=== PATIENT | female | born 1970 | race Caucasian/White ===

== ENCOUNTER 2024-09-05 10:01 | Outpatient (CLI) | payer OTHER, SELFPAY ==
--- NOTE | ~2024-09-05 | XR_ITS ---
Left Hand Technique: PA, oblique, and lateral views were obtained. Clinical History: Pain Findings: No acute fracture or dislocation is seen. Osseous alignment is anatomic. Joint spaces are p reserved. Soft tissues are unremarkable. Impression: Unremarkable left hand. Reviewed, dictated and finalized at location M. Impression: Unremarkable left hand.
--- NOTE | ~2024-09-05 | XR_ITS ---
Left foot Technique: AP, oblique, and lateral views were obtained. Clinical History: Pain Findings: No acute fracture or dislocation is seen. There is moderate degenerative change of the firs t MTP joint. Soft tissues are unremarkable. 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 Reviewed, dictated and finalized at location . 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
--- NOTE | ~2024-09-05 | XR_ITS ---
Right wrist Technique: PA, oblique, lateral, and ulnar deviation views were obtained. Clinical History: Pain Findings: No acute fracture or dislocation is seen. Osseous alignment is anatomic. Joint spaces are p reserved. Soft tissues are unremarkable. Impression: Unremarkable right wrist radiographs. Reviewed, dictated and finalized at location . Impression: Unremarkable right wrist radiographs.
--- NOTE | ~2024-09-05 | XR_ITS ---
Right Hand Technique: PA, oblique, and lateral views were obtained. Clinical History: Pain Findings: No acute fracture or dislocation is seen. Osseous alignment is anatomic. Joint spaces are p reserved. Soft tissues are unremarkable. Impression: Unremarkable right hand. Reviewed, dictated and finalized at location M. Impression: Unremarkable right hand.
--- NOTE | ~2024-09-05 | XR_ITS ---
Left wrist Technique: PA, oblique, lateral, and ulnar deviation views were obtained. Clinical History: Pain Findings: No acute fracture or dislocation is seen. Osseous alignment is anatomic. Joint spaces are p reserved. Soft tissues are unremarkable. Impression: Unremarkable left wrist radiographs. Reviewed, dictated and finalized at location . Impression: Unremarkable left wrist radiographs.
--- OUTSIDE RECORDS SUMMARY | 2024-09-05 11:18 | XMS_ITS | Data Portability ---
Author Organization 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 Patient will come back in a year unless there are new symptoms. Not available 09/26/2021 09:38:05 04/28/2024 04/28/2024 Annual gynecological exam performed. Patient will come back in a year unless there are new symptoms. [email or web address] Not available 04/28/2024 09:19:43 Plan of Treatment Reminders Order Date Submit Date Provider Last Modified By Organization Details Last Modified Time Details Appointments None recorded. Lab hormone panel, serum or plasma 2022 023 [facility] (Lab), [address], [place], [address], 3 02:44:31 hsv (1+2) igm, serum 2022 023 [facility] (Lab), [address], [place], [address], 3 17:38:13 hsv-1 igg Ab, serum 2022 023 [facility] (Lab), [address], [place], [address], 3 17:38:12 hsv-2 igg Ab, serum 2022 023 [facility] (Lab), [address] [address], [place], [address], 3 17:38:12 hbcab (hepatitis B core Ab) igm, serum 2022 023 [facility] (Lab), [address], [place], [address], 3 17:38:13 HBsAg (hepatitis B surface Ag), serum 2022 023 [facility] (Lab), [address], [place], [address], 3 17:38:11 hepatitis C virus Ab, serum 2022 023 [facility] (Lab), [address], [place], [address], 3 17:38:12 unlisted lab - HIV 1/2 antigen/an tibody, reflex confirmati on 2022 023 [facility] (Lab), [address], [place], [address], 3 17:38:11 RPR (rapid plasma reagin), serum 2022 023 [facility] (Lab), [address] [place], [address], 3 17:38:13 RPR (rapid plasma reagin), serum 2021 022 [facility] (Lab), [address], [place], [address], 2 13:50:01 Referral None recorded. Procedures None recorded. Surgeries None recorded. Imaging MAMMO, screening, digital, bilateral 2023 024 [facility] [address], [place], [address], 4 04:07:31 Medication Orders fluconazol e 150 mg tablet 2023 024 [facility] #[id number], [address] [facility], [place], [place], [id number], 4 10:09:01 estradiol 1 mg tablet 2023 024 [facility] #41176, [address] [place] [address], [id number], 4 10:10:43 Prometrium 100 mg capsule 2023 024 [facility] #76769, [address] [place] [address], [id number], 4 10:10:42 estradiol 1 mg tablet 2023 024 [facility] #15824, [address] [facility], [place], [place], [id number], 4 16:17:13 progestero ne micronized 100 mg capsule 2023 024 [facility] #48135, [address] [place] [address], [id number], 4 09:28:59 azithromyc in 500 mg tablet 2022 023 [email or web address] [facility] #95936, [address] [place] [address], [id number], 3 09:47:13 Patient TargetsNo targets recorded. Patient InstructionsNo instructions recorded. Reason for Referral None Reported. Results Created Date Observation Date Name Description Value Unit Range Abnormal Flag Note LastModifiedBy Organization Detail LastModifiedTime 09/27/19 22 09/26/2021 RPR SCREE N/REF TAL TITER /FTA RPR screen Nonrea ctive nonrea ctive Not Available [facility] (Lab) [address], [place], [address], 09/27/2021 13:50:01 09/27/19 22 09/26/2021 IMAGE GUIDE D PAP AND HPV REGAR DLESS image guided Pap, HPV regardless of Pap result SEE RESULT S BELOW CASE REPOR T: Cytol ogy Gynec ologi gary Repor t Case: [id number] Autho ritimn g [place]vi [place]: Misha Yi MD Colle cted: 09/26 0949 Order ing Locat ion: [place] Patho logy Recei aldo: 09/27 0808 First Scree n: Karen Moscoso een: Ngoc Diaz ed, CT Speci men: Scree reagan Pap - Image d, Cervi x STATE MENT OF ADEQU ACY: Satis facto ry for evalu ation Trans forma tion zone compo nent absen t The absen ce of an endoc ervic al compo nent was confi rmed by an addit ionquintin collins. FINAL DIAGN OSIS: Negat ludin for Intra epith elial Christian barrow or Jared may (NIL) . Raysa ewing d by Ngoc Diaz ed, CT on 2021 at 9:10 PM ----- ----- ----- ----- ----- ----- ----- ----- ----- ----- ----- ----- ----- ----- ----- ----- ----- ---- HPV RESUL TS: HPV mRNA E6/E7 : No HPV mRNA Detec bassem NOTE: This high risk HPV mRNA assay detec ts fourt een high- risk HPV types (16, 18, 31, 33, 35, 39, 45, 51, 52, 56, 58, 59, 66, 68) witho ut diffe renti ation . COMME NT: Note: This speci men was revie wed by a Cytot echno logis t and/o r Patho logis t (as indic ated in this repor t) after evalu ation using the Thinp rep Imagi ng Syste m. CLINI GARY INFOR MATIO N: Menst rual Statu s: LMP (if appli cable ): Clini gary Histo ry/Pr eviou s Pap: Type of Neopl aidee (if appli cable ): Signi fican t Clini gary Findi ngs: Other Histo ry: Hormo shelley (if appli cable ): PAP EDUCA IRASEMA L NOTE: The Pap Test is a scree reagan test with an inher ent false negat ludin rate. Liqui d-bas ed sampl ing may decre ase, but will not elimi joslyn, false negat ludin resul ts. A negat ludin resul t does not precl ude the prese nce and/o r devel opmen t of disea se, since the prese nce of abnor mal cells in the sampl e depen ds on the locat ion of the lesio n and sampl ing techn ique. Yuri nued regul ar scree reagan is the best metho d of cance r preve ntion . If repor bassem cytol ogic findi ng do not corre late with physi gary and/o r histo rical findi ngs, furth er inves tigat ion is recom kinjal d, as clini alisia santana nted. Not Available [facility] (Lab) [address], [place], [address], 10/04/2021 22:13:39 09/27/19 22 09/26/2021 CT/GC (MARTHA) , THINP REP VIAL chlamydia trachomatis, PCR Negati ve negati ve Not Available [facility] (Lab) [address], [place], [address], 10/04/2021 22:13:40 09/27/19 22 09/26/2021 CT/GC (MARTHA) , THINP REP VIAL neisseria gonorrhoeae, PCR Negati ve negati ve Not Available [facility] (Lab) [address], [place], [address], 10/04/2021 22:13:40 09/27/19 22 09/26/2021 TRICH OMONA S VAGIN TAI (RRNA ) trichomonas vaginalis ribosomal RNA (rrna) Negati ve negati ve Not Available [facility] (Lab) [address], [place], [address], 10/04/2021 22:13:40 06/17/19 23 06/17/2022 VAGIN ITIS/ VAGIN OSIS, DNA PROBE kati sp. detection, direct probe Negati ve negati ve Not Available [facility] (Lab) [address], [place], [address], 06/18/2022 16:20:52 06/17/19 23 06/17/2022 VAGIN ITIS/ VAGIN OSIS, DNA PROBE gardnerella vag. detection, direct probe Negati ve negati ve Not Available [facility] (Lab) [address], [place], [address], 06/18/2022 16:20:52 06/17/19 23 06/17/2022 VAGIN ITIS/ VAGIN OSIS, DNA PROBE trichomonas vag. detection, direct probe Negati ve negati ve Not Available [facility] (Lab) [address], [place], [address], 06/18/2022 16:20:52 06/17/19 23 06/17/2022 CT/GC (MARTHA) , SWAB chlamydia trachomatis, PCR Negati ve negati ve Not Available [facility] (Lab) [address], [place], [address], 06/18/2022 16:20:53 06/17/19 23 06/17/2022 CT/GC (MARTHA) , SWAB neisseria gonorrhoeae, PCR Negati ve negati ve Not Available [facility] (Lab) [address], [place], [address], 06/18/2022 16:20:53 06/17/19 23 06/17/2022 HIV 1/2 ANTIG EN/AN TIBOD Y, REFLE X CONFI RMATI ON HIV antigen/anti body Nonrea ctive nonrea ctive HIV-1 antig en and HIV-1 /HIV- 2 antib odies were not detec bassem. No labor atory evide nce of HIV infec tion. Not Available [facility] (Lab) [address], [place], [address], 06/21/2022 17:38:11 06/17/19 23 06/17/2022 HEPAT ITIS B SURFA CE ANTIG EN hepatitis B surface antigen Non-re active non-re active This assay was perfo rmed using [employer] [facility] [facility] Corpo ratio n reage nts and test kits. Value s obtai ekaterina with other assay metho ds or kits canno t be used inter alfred eably . Not Available [facility] (Lab) [address], [place], [address], 06/21/2022 17:38:11 06/17/19 23 06/17/2022 HEPAT ITIS C ANTIB YAYO SCREE N, REFLE X TO CONFI RMATI ON hepatitis C antibody Non-re active non-re active Antib odies to HCV Not Detec bassem, does not exclu de the possi bilit y of expos ure to HCV. Not Available [facility] (Lab) [address], [place], [address], 06/21/2022 17:38:12 06/17/19 23 06/17/2022 HERPE S SMPLE X VIRUS TYPE 1 SPECI FIC AB, IGG herpes simplex virus 1 IgG Negati ve negati ve Not Available [facility] (Lab) [address], [place], [address], 06/21/2022 17:38:12 06/17/19 23 06/17/2022 HERPE S SMPLE X VIRUS TYPE 1 SPECI FIC AB, IGG herpes simplex virus 1 IgG, quant <0.2 ai 0.0-0. 8 Not Available [facility] (Lab) [address], [place], [address], 06/21/2022 17:38:12 06/17/19 23 06/17/2022 HERPE S SIMPL EX VIRUS TYPE 2 SPECI FIC AB, IGG herpes simplex virus 2 IgG Negati ve negati ve Not Available [facility] (Lab) [address], [place], [address], 06/21/2022 17:38:12 06/17/19 23 06/17/2022 HERPE S SIMPL EX VIRUS TYPE 2 SPECI FIC AB, IGG herpes simples virus 2 IgG, quant <0.2 ai 0.0-0. 8 Not Available [facility] (Lab) [address], [place], [address], 06/21/2022 17:38:12 06/17/19 23 06/17/2022 RPR SCREE N/REF TAL TITER /FTA RPR screen Nonrea ctive nonrea ctive Not Available [facility] (Lab) [address], [place], [address], 06/21/2022 17:38:13 06/17/19 23 06/17/2022 HEPAT ITIS B CORE, IGM hepatitis B core IgM antibody Negati ve negati ve Not Available [facility] (Lab) [address], [place], [address], 06/21/2022 17:38:13 06/17/19 23 06/17/2022 HERPE S SIMPL EX VIRUS , 1 AND 2 IGM, IFA hsv 1 IgM screen NEGATI VE Not Available [facility] (Lab) [address], [place], [address], 06/21/2022 17:38:13 06/17/19 23 06/17/2022 HERPE S SIMPL EX VIRUS , 1 AND 2 IGM, IFA hsv 2 IgM screen NEGATI VE REFER ENCE RANGE : NEGAT LUDIN HSV IgM is detec table in serum from >90% of patie nts with prima ry HSV infec tion. Howev er, HSV IgM canno t be relia shilpa used to diagn ose acute /rece nt infec tion as it is also found in 30% of patie nts with react ivate d HSV. This test may not disti nguis h betwe en HSV-1 IgM and HSV-2 IgM due to cross -reac tivit y. To diagn ose acute genit al or mucos al HSV infec tion, direc t detec tion from a lesio n by cultu re or molec ular metho ds is prefe rred. HSV IgM posit ivity shoul d be confi rmed by HSV-1 /2 type- speci fic IgG testi ng. This test was devel oped and its glenny tical perfo rmanc e yuliana cteri stics have been deter mined by [facility]. It has not been clear ed or appro aldo by FDA. This assay has been valid ated pursu ant to the CLIA regul ation s and is used for clini gary purpo ses. Perfo rming Organ izati on Infor matio n: Site ID: [id number] Name: [facility]/William camilla [facility] [place] , Addre ss: [id number] [facility] [place] [address] Direc tor: Thais benjamin MD,Ph D,INDIRA Not Available [facility] (Lab) [address], [place], [address], 06/21/2022 17:38:13 10/01/19 23 09/30/2022 FSH, LH, ESTRA DIOL estradiol 60.5 pg/mL This assay was perfo rmed using [employer] [facility] ratio n reage nts and test kits. Value s obtai ekaterina with other assay metho ds or kits canno t be used inter alfred eably . Femal e Estra diol Range s: Folli cular phase 12.4- 233 pg/mL Ovula tion phase 41.0- 398 pg/mL Lutea l phase 22.3- 341 pg/mL Postm enopa usal< 5-138 pg/mL Healt hy Pregn ant Women 1st Trime ster1 54-32 43 pg/mL 2nd Trime ster1 561-2 1280 pg/mL 3rd Trime ster8 525-> 66415 pg/mL Not Available [facility] (Lab) [address], [place], [address], 10/01/2022 02:44:31 10/01/19 23 09/30/2022 FSH, LH, ESTRA DIOL FSH 40.9 mIU/m L This assay was perfo rmed using [employer] ratio n reage nts and test kits. Value s obtai ekaterina with other assay metho ds or kits canno t be used inter alfred belia . Femal es Folli cular : 3.5-1 2.5 mIU/m L Ovula tion: 4.7-2 1.5 mIU/m L Lutea l: 1.7-7 .7 mIU/m L Postm enopa use: 25.8- 134.8 mIU/m L Not Available [facility] (Lab) [address], [place], [address], 10/01/2022 02:44:31 10/01/1909/30/2022 FSH, LH, ESTRA DIOL LH 48.0 mIU/m L This assay was perfo rmed using [employer] ratio n reage nts and test kits. Value s obtai ekaterina with other assay metho ds or kits canno t be used inter alfred belia . Femal es Mid-F ollic ular: 2.4-1 2.6 mIU/m L Mid-C ycle: 14.0- 95.6 mIU/m L Mid-L uteal : 1.0-1 1.4 mIU/m L Postm enopa use: 7.7-5 8.5 mIU/m L Not Available [facility] (Lab) [address], [place], [address], 10/01/2022 02:44:31 10/01/19 23 09/30/2022 IMAGE GUIDE D PAP AND HPV REGAR DLESS image guided Pap, HPV regardless of Pap result SEE RESULT S BELOW CASE REPOR T: Cytol ogy Gynec ologi gary Repor t Case: [id number] Autho kev sheldon Provi [place]: Alicja Webb, CANDACE Colle cted: 09/30 1445 Order ing Locat ion: [place] Patho logy Recei aldo: 10/01 0140 First Scree n: Strut z, Willi am, CT Rescr een: Haven Bone ret, CT Speci men: Scree reagan Pap - Image d, Cervi x STATE MENT OF ADEQU ACY: Satis facto ry for evalu ation Trans forma tion zone compo nent prese nt FINAL DIAGN OSIS: Negat ludin for Intra epith elial Lesio n or Jared may (NIL) . Elect litzy llanos gildardo d by Haven Bone ret, CT on 2022 at 5:55 PM ----- ----- ----- ----- ----- ----- ----- ----- ----- ----- ----- ----- ----- ----- ----- ----- ----- ---- HPV RESUL TS: HPV mRNA E6/E7 : No HPV mRNA Detec bassem NOTE: This high risk HPV mRNA assay detec ts fourt een high- risk HPV types (16, 18, 31, 33, 35, 39, 45, 51, 52, 56, 58, 59, 66, 68) witho ut diffe renti ation . COMME NT: This speci men was revie wed by a Cytot echno logis t and/o r Patho logis t (as indic ated in this repor t) after evalu ation using the Thinp rep Imagi ng Syste m. CLINI GARY INFOR MATIO N: Menst rual Statu s: LMP (if appli cable ): Clini gary Histo ry/Pr eviou s Pap: Type of Neopl aidee (if appli cable ): Signi fican t Clini gary Findi ngs: Other Histo ry: Hormo shelley (if appli cable ): PAP EDUCA IRASEMA L NOTE: The Pap Test is a scree reagan test with an inher ent false negat ludin rate. Liqui d-bas ed sampl ing may decre ase, but will not elimi joslyn, false negat ludin resul ts. A negat ludin resul t does not precl ude the prese nce and/o r devel opmen t of disea se, since the prese nce of abnor mal cells in the sampl e depen ds on the locat ion of the lesio n and sampl ing techn ique. Yuri nued regul ar scree reagan is the best metho d of cance r preve ntion . If repor bassem cytol ogic findi ng do not corre late with physi gary and/o r histo rical findi ngs, furth er inves tigat ion is recom kinjal d, as clini alisia santana nted. Not Available [facility] (Lab) [address], [place], [address], 10/03/2022 18:57:03 Result Notes None recorded. Problems Name Problem SNOMED Code Status Onset Date Resolution Date Notes Provider Name and Address Organization Details Recorded Time Speciali zed medical examinat ion Completed 201409/13/2020 Routine gynecolo gical examinat ion;Prac ofelia ID: [id number] Juaquin Yi MD [address], [place], [address], [facility] 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 1 10:06:44 Abnormal cervical Papanico laou smear [id number] Active 2014 Kirsten Horvath [facility] 3 12:37:33 History of syphilis [id number] Active Kirstenfrancesca Horvath [facility] 3 12:38:22 Human papillom a virus infectio n 129331866 Active 2014 Kirsten Horvath [facility] 3 12:39:13 Problem Notes None recorded. Procedures Surgical History Date Name Laterality Status Provider Name and Address Organization Details Recorded Time 10/01/19 23 Date of Last Pap Smear completed [facility] 09/30/2022 09:47:38 05/17/20 20 Bartholin Cyst Drainage completed Katty Ortiz NEGRO- [address], [place], [address], [facility] 05/17/2020 10:30:30 06/08/19 15 procedure on Bartholin's gland completed [facility] 06/17/2022 13:00:08 06/08/19 13 Tubal Ligation completed [facility] 06/17/2022 12:58:55 04/28/20 08 section completed [facility] 06/17/2022 12:59:18 06/08/19 01 Thyroid Surgery completed [facility] 06/17/2022 12:57:29 06/08/18 96 extraction of wisdom tooth completed [facility] 06/17/2022 12:59:36 procedure on back completed [facility] 06/17/2022 12:58:33 Imaging Results None recorded. Procedure Notes None recorded. Medical Equipment None Reported. Allergies No known drug allergies Medications Name Sig Start Date Stop Date Status Note LastModified by Organization Details LastModified Time doxycycli ne hyclate 100 mg capsule TAKE 1 CAPSULE BY MOUTH EVERY DAY AT BEDTIME 06/17 completed Not Available Not Available Not Available nicotine 14 mg/24 hr daily transderm al patch APPLY 1 PATCH TOPICALL Y TO THE SKIN EVERY DAY DIRECTED 06/17 completed Not Available Not Available Not Available Zyrtec-D 5 mg-120 mg tablet,ex tended release TAKE 1 TABLET BY MOUTH EVERY 12 HOURS NEEDED active Not Available Not Available No t Available ammonium lactate 12 % lotion APPLY TOPICALL Y TO THE AFFECTED AREA ON CALLUSES THE PLANTAR FOOT TWICE DAILY DIRECTED 06/17 completed Not Available Not Available Not Available trazodone 50 mg tablet TAKE 1 TABLET BY MOUTH EVERY DAY AT BEDTIME 06/17 completed Not Available Not Available Not Available cetirizin e 10 mg tablet TAKE 1 TABLET BY MOUTH EVERY DAY DIRECTED active Not Available Not Available No t Available fluconazo le 150 mg tablet TAKE 1 TABLET BY MOUTH NOW. REPEAT IN 72 HOURS NEEDED active Not Available Not Available No t Available valacyclo vir 1 gram tablet TAKE 1 TABLET BY MOUTH EVERY 12 HOURS 03/19 completed Not Available Not Available Not Available Paxil 10 mg/5 mL oral suspensio n take 10 millilit er by oral route every day 10/27 completed Prescrib ed Elsewher e: Yes Loca tion: [facility] M odify By: gold bolden DateTime : 01/12/20 15 01:00:00 PM Not Available Not Available Not Available prednison e 20 mg tablet TAKE 2 TABLETS BY MOUTH EVERY DAY WITH FOOD FOR 5 DAYS 03/19 completed Not Available Not Available Not Available clonazepa m 0.5 mg tablet TAKE 1 TABLET BY MOUTH EVERY 24 HOURS NEEDED 03/19 completed Not Available Not Available Not Available metronida zole 500 mg tablet TAKE 1 TABLET BY MOUTH TWICE DAILY WITH MEALS FOR 7 DAYS 03/19 completed Not Available Not Available Not Available alprazola m 0.25 mg tablet TAKE 1 TABLET BY MOUTH EVERY 24 HOURS NEEDED 04/28 completed Not Available Not Available Not Available Metrogel Vaginal 0.75 % (37.5 mg/5 gram) insert 1 applicat orful by vaginal route for 5 nights at bedtime 09/13 completed Prescrib ed Elsewher e: No Locat ion: [facility] odify By: karl ramos DateTime : 10/30/19 01:25:31 PM Not Available Not Available Not Available estradiol 1 mg tablet Take 1 tablet every day by oral route. active Not Available Not Available No t Available trazodone 100 mg tablet TAKE 1 TABLET BY MOUTH EVERY DAY AT BEDTIME 06/17 completed Not Available Not Available Not Available Ear Wax Removal Drops 6.5 % INSTILL 4 DROPS INTO AFFECTED EARS BY OTIC ROUTE TWICE DAILY 06/17 completed Not Available Not Available Not Available Keflex 250 mg capsule take 1 capsule by oral route every 6 hours 01/30 completed Prescrib ed Elsewher e: Yes Loca tion: [facility] odify By: [email or web address] debrak En counter DateTime : 01/12/20 01:00:00 PM Not Available Not Available Not Available cephalexi n 500 mg capsule TAKE 1 CAPSULE BY MOUTH TWICE DAILY FOR 7 DAYS 05/24 completed Not Available Not Available Not Available oseltamiv ir 75 mg capsule TAKE 1 CAPSULE BY MOUTH TWICE A DAY 09/13 completed Not Available Not Available Not Available Cipro 500 mg tablet take 1 tablet by oral route every 12 hours 07/03 completed Prescrib ed Elsewher e: No Locat ion: [facility] odify By: gold bolden DateTime : 03/30/20 08:30:00 AM Not Available Not Available Not Available buspirone 10 mg tablet TAKE 1 TABLET BY MOUTH EVERY 12 HOURS NEEDED active Not Available Not Available No t Available diclofena c sodium 75 mg tablet,de layed release TAKE 1 TABLET BY MOUTH EVERY 12 HOURS NEEDED 03/19 completed Not Available Not Available Not Available penicilli n G sodium 5 million unit solution for injection TAKE 2.5 MILLION UNITS BY INJECTIO N ROUTE 09/13 completed Not Available Not Available Not Available levofloxa akilah 500 mg tablet TAKE 1 TABLET BY MOUTH EVERY 24 HOURS FOR 7 DAYS 09/30 completed Not Available Not Available Not Available zolpidem 10 mg tablet TAKE 1 TABLET BY MOUTH EVERY DAY NEEDED FOR SLEEP 06/17 completed Not Available Not Available Not Available methylpre dnisolone 4 mg tablets in a dose pack FOLLOW PACKAGE DIRECTIO NS active Not Available Not Available No t Available SSD 1 % topical cream APPLY A 1/16 INCH (1.5 MM) THICK LAYER TO ENTIRE BURN AREA BY TOPICALR OUTE 2 TIMES PER DAY 09/13 completed Not Available Not Available Not Available methadone 5 mg tablet take 1 tablet by oral route every 8 hours 07/03 completed Prescrib ed Elsewher e: Yes Loca tion: [facility] M odify By: [email or web address] trick En counter DateTime : 11/13/19 16 02:00:00 PM Not Available Not Available Not Available Klonopin 1 mg tablet take 1 tablet by oral route 3 times every day 07/03 completed Prescrib ed Elsewher e: Yes [facility]oca [facility]ify By: [email or web address] trick En counter DateTime : 11/13/19 16 02:00:00 PM Not Available Not Available Not Available fluticaso ne propionat e 50 mcg/actua tion nasal spray,lizeth pension SHAKE LIQUID AND USE 1 SPRAY IN EACH NOSTRIL EVERY DAY active Not Available Not Available No t Available sertralin e 50 mg tablet TAKE 1 TABLET BY MOUTH EVERY DAY IN THE MORNING 06/17 completed Not Available Not Available Not Available naproxen 500 mg tablet TAKE 1 TABLET BY MOUTH EVERY 12 HOURS DIRECTED active Not Available Not Available No t Available spironola ctone 50 mg tablet TAKE 2 TABLETS BY MOUTH EVERY DAY IN THE MORNING active Not Available Not Available No t Available progester one micronize d 100 mg capsule Take 1 capsule every day by oral route. active Not Available Not Available No t Available amoxicill in 875 mg-potass ium clavulana te 125 mg tablet TAKE 1 TABLET BY MOUTH EVERY 12 HOURS WITH MEALS FOR 10 DAYS 04/28 completed Not Available Not Available Not Available buspirone 15 mg tablet TAKE 1 TABLET BY MOUTH EVERY 12 HOURS DIRECTED 06/17 completed Not Available Not Available Not Available Bicillin L-A 1,200,000 unit/2 mL intramusc ular syringe Inject 2 mL by intramus cular route. 09/13 completed Not Available Not Available Not Available Bactrim DS 800 mg-160 mg tablet take 1 tablet by oral route every 12 hours 03/30 completed Prescrib ed Elsewher e: No Locat ion: [facility] odify By: gold Jo ter DateTime : 03/30/20 17 08:30:00 AM Not Available Not Available Not Available azithromy akilah 500 mg tablet TAKE 2 TABLETS BY MOUTH 09/30 completed Not Available Not Available Not Available escitalop simeon 10 mg tablet TAKE 1 TABLET BY MOUTH ONCE DAILY IN THE EVENING 05/17 completed Not Available Not Available Not Available escitalop simeon 5 mg tablet TAKE 1 TABLET BY MOUTH IN THE MORNING 05/17 completed Not Available Not Available Not Available bupropion HCl (bulk) 100 % powder 10/27 completed Prescrib ed Elsewher e: Yes Loca [facility]ion: [facility] odify By: gold Jo ter DateTime : 01/12/20 15 01:00:00 PM Not Available Not Available Not Available duloxetin e 60 mg capsule,d elayed release TAKE 2 CAPSULES BY MOUTH ONCE DAILY IN THE MORNING 05/17 completed Not Available Not Available Not Available Cymbalta 20 mg capsule,d elayed release take 3 Capsule by oral route every day 07/03 completed Prescrib ed Elsewher e: Yes Loca tion: [facility] odify By: gold Jo ter DateTime : 10/28/19 17 11:00:00 AM Not Available Not Available Not Available pregabali n 50 mg capsule TAKE 1 CAPSULE BY MOUTH TWICE DAILY DIRECTED active Not Available Not Available No t Available Echinacea Herb 06/17 completed Not Available Not Available Not Available oxycodone 10 mg tablet take 1 tablet by oral route every 4 - 6 hours 07/03 completed Prescrib ed Elsewher e: Yes Loca tion: [facility] odify By: [email or web address] trick En counter DateTime : 11/13/19 16 02:00:00 PM Not Available Not Available Not Available Alive Once Daily Women 50 Plus active Not Available Not Available Not Available Vitals Date Recorded Body height Body mass index (BMI) Body weight Systolic blood pressure Diastolic blood pressure Provider Name and Address Organization Details Last Updated DateTime 09/26/2021 157.48 cm 22.7 kg/m2 99646.45 g 119 mm[Hg] 71 mm[Hg] Ирина Wahl [facility] 2 09:38:24 Date Recorded Body height Body mass index (BMI) Body weight Systolic blood pressure Diastolic blood pressure Provider Name and Address Organization Details Last Updated DateTime 06/17/2022 157.48 cm 23.2 kg/m2 89967.23 g 109 mm[Hg] 66 mm[Hg] Kirsten Horvath [facility] 3 12:26:51 Date Recorded Body height Body mass index (BMI) Body weight Systolic blood pressure Diastolic blood pressure Provider Name and Address Organization Details Last Updated DateTime 09/30/2022 157.48 cm 23.2 kg/m2 04325.23 g 100 mm[Hg] 70 mm[Hg] Kirsten Horvath [facility] 3 09:46:46 Date Recorded Body weight Systolic blood pressure Diastolic blood pressure Provider Name and Address Organization Details Last Updated DateTime 03/19/2024 75946.63 g 120 mm[Hg] 66 mm[Hg] Jesica Silva [facility] 03/19/2024 10:55:27 Date Recorded Body height Body mass index (BMI) Body weight Systolic blood pressure Diastolic blood pressure Provider Name and Address Organization Details Last Updated DateTime 04/28/2024 157.48 cm 24 kg/m2 92223.6 g 116 mm[Hg] 74 mm[Hg] Emmy Jerry [facility] 4 09:26:02 Social History Question Answer Notes LastModified by Organizat ion Details LastModified Time Tobacco Smoking Status Current Every Day Smoker Kirsten martin [facility] 09/30/2022 09:47:05 What Is Your Level Of Alcohol Consumption? None Information not available 06/25/2020 Are You Blind Or Do You Have Difficulty Seeing? No Information not available 09/26/2021 What Is Your Level Of Caffeine Consumption? Occasional Information not available 06/25/2020 How Much Tobacco Do You Chew? None [email or web address] Information not available 03/19/2024 In The 14 Days Before Symptom Onset, Have You Had Close Contact With A Laboratory-confir med COVID-19 While That Case Was Ill? No Information not available 09/26/2021 In The 14 Days Before Symptom Onset, Have You Had Close Contact With A Person Who Is Under Investigation For COVID-19 While That Person Was Ill? No Information not available 09/26/2021 Have You Been To An Area Known To Be High Risk For COVID-19? No Information not available 09/26/2021 Are You Deaf Or Do You Have Serious Difficulty Hearing? No Information not available 09/26/2021 What Type Of Diet Are You Following? REGULAR Information not available 09/26/2021 What Is The Highest Grade Or Level Of School You Have Completed Or The Highest Degree You Have Received? 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 1 [email or web address] Information not available 09/30/2022 On Those Days That You Engage In Moderate To Strenuous Exercise, How Many Minutes, On Average, Do You Exercise? 60 [email or web address] Information not available 09/30/2022 Are There Any Guns Present In Your Home? No Information not available 09/26/2021 What Is Your Current Pack Years? 10packyears [email or web address] Information not available 09/30/2022 Do You Use Protection During Sex? No Information not available 09/26/2021 Do You Use Your Seat Belt Or Car Seat Routinely? Yes Information not available 09/26/2021 Do You Have Smoke And Carbon Monoxide Detectors In Your Home? Yes Information not available 09/26/2021 At What Age Did You Start Smoking Tobacco? 18 Information not available 06/25/2020 How Much Tobacco Do You Smoke? 2 PPW Information not available 06/25/2020 Do You Feel Stressed (tense, Restless, Nervous, Or Anxious, Or Unable To Sleep At Night)? [id number] [email or web address] Information not available 09/30/2022 Do You Use Any Illicit Or Recreational Drugs? No Information not available 06/25/2020 Do You Use Sunscreen Routinely? No Information not available 09/26/2021 Has Tobacco Cessation Counseling Been Provided? No [email or web address] Information not available 09/30/2022 How Many Years Have You Smoked Tobacco? 15 Information not available 06/25/2020 Have You Used IV Drugs? No Information not available 09/26/2021 Do You Or Have You Ever Used Any Other Forms Of Tobacco Or Nicotine? No [email or web address] Information not available 09/30/2022 Sex: Unknown Functional Status Question Answer Note LastModified by Organizat ion Details LastModified Time Do you have difficulty walking or climbing stairs? No [email or web address] Information not available 09/30/2022 Are you able to walk? [email or web address] Information not available 09/26/2021 Are you able to care for yourself? Yes Information not available 09/30/2022 Do you have difficulty dressing or bathing? No [email or web address] Information not available 09/30/2022 What is your exercise level? Moderate Information not available 06/25/2020 Mental Status None recorded. Family History Relationship Description Onset Age of this Age Resolved Age Notes LastModified by Organization Details LastModified Time Father Hypertensive disorder [email or web address] Not available 2019 09:44:28 Mother Anemia Not available 06/17/2022 12:51:26 Sister Psychotic disorder [email or web address] Not available 2023 09:16:34 Medical History Condition Response Other Y Blood Transfusion N Dermatologic Disorders Y Gestational Diabetes N Anxiety Disorder Y Autoimmune disease N Arthritis N Polyps N Infertility N Acid Reflux (GERD) N Cancer N Varicosities N Stroke N Neurologic/Epilepsy Y Fibromyalgia N Headaches N Kidney Disease N Heart Problems N Kidney or Bladder Problems N Eating Disorder N Art (IVF or FET) N Hepatitis/Liver Disease N No Past Medical History N Urinary Tract Infection N Asthma N Trauma/Violence N Thrombophilias N Allergies (Food, seasonal, environmental ) Y Breast Cancer N Drug/Latex Allergies/Reactions N Lung Disease N Defects or Inherited Disease N Breast Problem N Hematologic disorders N Anesthesia Complications N History of STI Y Deep Vein Thrombosis N Polycystic ovary syndrome Y History of abnormal pap Y Endometriosis N High Cholesterol N Thyroid Problems Y GI Problems N Anemia N Psychiatric Illness N Ovarian Cancer N Diabetes N Pulmonary (TB, Asthma) N Eczema N Abuse/Domestic Violence N Depression/ depression Y Heart Disease N Pre-Eclampsia N Hypertension N Osteoporosis N Gynecological History Statement/Question Response Abnormal Pap Yes Date of Last Mammogram Date of LMP 06/08/2012 N STIs/STDs Y HPV Vaccine N Current Control Method Tubal Ligat ion Age at First Child 38 Sexually Active? Y Date of Last Pap Smear 09/30/2022 Sexual Problems? N Desired Control Method Ablation LMP Approximate N Obstetrics History GPAL:G 1 P 1 0 0 1 Type Value Full Term 1 Living 1 Total 1 Past Encounters Encounter ID Performer Location Encounter Start Date Encounter Closed Date Diagnosis/Indication Diagnosis SNOMED-CT Code Diagnosis ICD10 Code Diagnosis Note [id number] [facility] [address] [address] 05/17/2020 09:39:46 05/17/2020 10:40:26 Cyst of right Bartholin's gland duct 4000109426 2929032 N75.0 Bartholin' s cyst right drained today. Tolerated procedure well. Post-op instructio ns reviewed. Keflex sent Start immediatel y F/U next week for wound/med check Patient is to contact office or go to nearest ED/Urgent care if fever >/= 100.1, pain, excessive bleeding, unusual drainage or swelling in area of concern; or experienci ng worsening sx's or new onset of concerning sx's. Understand ing verbalized . All questions answered to patient satisfacti on. Time spent in visit is a total of 27 mins with at least 50% of visit consisting of counseling and review of plan of care Not including time spent on procedure performed today. [id number] Katty Ortiz [facility] [address],[place] [address] 05/24/2020 09:31:14 05/24/2020 10:36:40 Cyst of right Bartholin's gland duct [id number] 7014143 N75.0 Issue has resolved & has healed very nicely after I&D rt samia's cyst. Took all abx. We discussed that if this occurs again will need consult with MD for possible marsupiali zation since this has happened multiple times in the past. She agrees. Will call if issue returns. Time spent in visit is a total of 15 mins with at least 50% of visit consisting of counseling and review of plan of care. [id number] Juaquin Yi MD [facility] [address],[place] [address] 06/25/2020 09:39:04 06/25/2020 10:54:45 Ulcer of anus 54311562 K62.6 this is likely herpes. A swab was taken of the ulcer, blood testing will be performed for IgG and IgM of HSV. She will have comprehens ludin STD testing. Sexually t ransmitted infectious disease 2396289 A64 [id number] Juaquin Yi MD [facility] [address],[place] [address] 06/29/2020 11:40:18 07/01/2020 14:58:02 Lesion of vulva 374858735 N90.89 this patient is a 49-year-ol d female presents for follow-up on sexual transmitte d disease testing and vulvar/geovanny lesions. She has got some moderate, deep ulcers around the anus and 1 on the vulva. The did not appear to be much improved since starting Valtrex 3 days prior. We spoke in the office on 06/29/2020 and over the phone on 06/30/2020 . We considered continue the treatment in the office. We received the results overnight and spoke on the phone about the results. She showed acute positivity for herpes. She also has been exposed or has an acute infection of syphilis. We spent overall more than 45 minutes face-to-fa ce and on the phone we talked about herpes. We talked about herpes in detail. We talked about syphilis testing. We discussed a referral to Infectious Disease. We will arrange for the referral to Infectious Disease. Patient will continue treatment for herpes and return in 4-5 days. The rest of her sex transmitte d disease testing was normal. Patient has profound anxiety. She is tearful and in great discomfort . Syphilis [id number] A53.9 [id number] Juaquin iY MD [facility] [address] [place] [address] 07/03/2020 17:47:50 07/04/2020 15:32:43 Herpes simplex 01365717 B00.9 This patient 50-year-ol d female presents for follow-up on primary herpes outbreak and syphilis infection. Patient is feeling better. She has less pain. She states the lesions are getting smaller. She began antibiotic regimen for syphilis and is taking a prolonged treatment of valacyclov ir for the herpes. We discussed more of the details of her condition. We talked about the follow-up on the syphilis treatment. We spent more than 15 minutes face-to-fa ce. More than 50% was counseling we talked about these to moderately complex problems. These are of unknown prognosis and are acute problems. Syphilis 41951703 A53.9 [id number] Juaquin Yi MD [facility] [address],[place] [address] 07/05/2020 09:45:12 07/09/2020 15:50:35 Injection given 652331369 Z98.890 [id number] Juaquin Yi MD [facility] [address],[place] [address] 07/18/2020 16:46:36 07/18/2020 17:35:09 Syphilis 60088940 A53.9 Herpes simplex 12873467 B00.9 patient is a 50-year-ol d female presents for follow-up on herpes and syphilis infections . She was treated. She had a large ulcer around the anus. These areas have resolved. Her pain is resolved. She is doing well. She was treated with both doxycyclin e and penicillin for her syphilis. She will return in 6 months for a titer of her syphilis. Patient will contact us for any herpes outbreaks. Patient will schedule a well-woman exam. [id number] Juaquin Yi MD [facility] [address],[place] [address] 09/13/2020 09:16:07 09/13/2020 10:20:28 Gynecologic examination 51976640 Z01.419 This patient is here for her annual exam. A thorough history was taken. A physical exam was performed. Age appropriat e routine health screening was ordered, performed, and discussed. Recommende d testing was ordered. She was asked to follow up in one year. She will be informed of any test results. Insomnia - trial of ambient. Mammogram - [ordered] Colonoscop y - [ cologuard ] Bone Density - [na] Cholestero l - [ done ] Pap - today Insomnia [id number] G47.0 1 [id number] Juaquin Yi MD [facility] [address],[place] [address] 09/26/2021 09:23:58 09/26/2021 10:24:00 Gynecologic examination 73278950 Z01.419 This patient is here for her annual exam. A thorough history was taken. A physical exam was performed. Age appropriat e routine health screening was ordered, performed, and discussed. Recommende d testing was ordered. She was asked to follow up in one year. She will be informed of any test results. Mammogram - [ordered] Colonoscop y - cologuard Bone Density - [na] Cholestero l - [ done ] Pap - today [id number] Alicja Iyer [facility] [address],[place] [address] 06/17/2022 11:39:29 06/17/2022 15:29:05 Venereal disease screening 470430109 Z11.3 Will treat d/t known exposure. Sexually t ransmitted infectious disease 7020508 A64 Pt desires full panel. I have also encouraged repeat labs in 3-6 months. Discussed limitation s of testing especially for hsv. Pt verbalized understand ing. [id number] Alicja Iyer [facility] [address],[place] [address] 09/30/2022 09:35:55 09/30/2022 10:12:10 Gynecologic examination 64857421 Z01.419 Suggested Calcium with Vitamin D 1200-1500m g daily. Patient advised to get an annual flu shot in the fall and she could obtain at [facility] or [facility] care clinic. Also to obtain TDap vaccinatio n if you have not had one in the last 10 years. Recommend yearly mammograms . Encouraged monthly self breast exams. Encourage safe sexual practices, to use condoms and limit partners if not already in a monogamous relationsh ip. Engage in daily exercise of low impact aerobic exercise 45-60 minutes 4-5 times weekly. Avoid tobacco and illicit drugs as well as using moderation with alcohol intake less than 1-2 8 oz beverages daily. This lifestyle behavior pattern will lead to less health conditions and longer life span. If BMI greater than 25 weight watchers or dietary consult advised. All questions have been answered. Patient appears to understand informatio n, but if you have any questions please call or respond to this email. Menopausal flushing 1983 79937 N95.1 Tolerable but patient would like labs since she has had an ablation and has not had cycles since. [id number] Juaquin Yi MD [facility] [address] [address] 03/19/2024 10:51:43 03/20/2024 05:36:04 Menopausal symptom 66595646 N95.1 This patient is a 53-year-ol d female with menopausal symptoms. She has night sweats. She has hot flashes. We discussed treatment options. We discussed hormones in detail. We discussed risks, benefits, and alternativ es. We agreed to treat with hormones. We agreed to estradiol and progestero ne. I discussed the risks, benefits, and alternativ es. We discussed cancer risk. I gave her precaution s and instructio ns. We spent extensive time on counseling for this New complex problem. [id number] JESSICA Del Real [facility] [address] [address] 04/28/2024 09:14:49 04/28/2024 10:36:37 Gynecologic examination 64491406 Z01.419 wweno pap done today, paps Q3-5yrs unless otherwise indicatedS TI screen declinedma mmogram ordered and encouraged colon cancer screening discussed and encouraged routine labs UTD/PCP Do monthly self breast exams. It is advised to get annual flu shot in the fall and she could obtain at local pharmacy. If you haven't received the Tdap vaccine in the last 10 years you should obtain one as well. Have mammogram yearly, bone density every 2-3 years and stay up to date on colon cancer screening. Engage in regular exercise. Avoid tobacco and illicit drugs. This lifestyle behavior pattern will lead to less health conditions and longer life span. If BMI greater than 25 dietary consult advised. Questions have been answered. Screening for malignant neoplasm of breast 793421349 Z12.39 Hormone re placement therapy 977406212 Z79.890 doing well on HRT and desires to continuer/ b/a reviewed, refills sent, precaution s discusseds moking cessation encouraged Vaginitis 26064622 N76.0 rx sent in case of yeast infection d/t current antibiotic use Menopausal symptom 08748 002 N95.1 Health Concerns Section Related Observation LastModified by Organization Detai ls LastModified Time None Recorded Concern Status LastModified by Organization Details LastModified Time None Recorded Advance Directives Directive None Recorded Payers Encounter Date Sequence Insurance Name Policy Number Policy Escalera Covered Member ID Escalera Member ID Guarantor Name 09/26/2021 1 [facility] (MEDICAID HMO) [id number] Antoinett Wood [id number] Joann Wood 06/17/2022 1 [employer] [facility] (MEDICAID HMO) [id number] 0003 Antoinett Wood [id number] Joann Wood 09/30/2022 1 [employer] [facility] (MEDICAID HMO) [id number] Antoinett Wood [id number] Joann Wood 03/19/2024 1 [employer] [facility] (MEDICAID HMO) [id number] 0003 Antoinett Wood [id number] Joann Wood 04/28/2024 1 [facility] [facility] (MEDICAID HMO) [id number] 0003 Antoinett Wood [id number] Joann Wood Notes Date Note Type Note Provider Name and Address Organization Details Recorded Time 2 text/html Annual GYNReported bypatient.History:no gynecologic complaints Menstrual cycle:amenorrhea sp ablation Urinary symptoms:No hematuria; No incontinence Vulva:No genital lesion Vagina:Normal vaginal discharge Breast:No breast pain; No breast lump; No nipple discharge Current Contraception:Satisfied with current contraception; Tubal ligation Sexual complaints:No sexual complaints; No pain during intercourse Menopausal Symptoms:No menopausal symptoms; Normal vaginal lubrication Psychological symptoms:No depression;Anxiety; treated Preventive measures:Encourage self breast examination; Encourage regular exercise Juaquin Yi MD [address], [place], [address], [facility] 09/26/2021 10:11:35 3 text/html S/O unfaithful and diagnosed with chlamydia. Pt here for testing. No symptoms. Alicja martin [facility] 06/17/2022 15:27:52 3 text/html Annual GYNReported bypatient.Urinary symptoms:No hematuria; No incontinence Vulva:No genital lesion Vagina:Normal vaginal discharge Breast:No breast pain; No breast lump; No nipple discharge Sexual complaints:No sexual complaints; No pain during intercourse; Normal libido Menopausal Symptoms:No menopausal symptoms; Normal vaginal lubrication Psychological symptoms:No depression; No anxiety; No PMDD Alicja martin [facility] 09/30/2022 10:09:56 4 text/html This patient is a 53-year-old female with menopausal symptoms. She has night sweats. She has hot flashes. We discussed treatment options. We discussed hormones in detail. We discussed risks, benefits, and alternatives. We agreed to treat with hormones. We agreed to estradiol and progesterone. I discussed the risks, benefits, and alternatives. We discussed cancer risk. I gave her precautions and instructions. We spent extensive time on counseling for this New complex problem. Juaquin Yi MD [address], [place], [address], [facility] 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.Menopausal Symptoms:no menopausal symptoms; normal vaginal lubrication Vaginal Bleeding:history of menopause having occurred; no history of post menopausal bleeding Urinary Symptoms:no hematuria; no incontinence; no nocturia; no urinary frequency Vulva:no genital lesion; no vulvar atrophy Vagina:normal vaginal discharge; no vaginal atrophy Breast:no breast lump; no nipple discharge; no breast pain Sexual Complaints:no sexual complaints Psychological Symptoms:no depression; no anxiety Preventive Measures:encourage regular mammograms starting age 40; encourage self breast examination; encourage regular exercise; encourage no tobacco useNotes:53yo wwepostmenopausallast pap 09/2022 : nilm, HPV (-)09/2021 : nilm, HPV (-)09/2020 : nilm, HPV (-)h/o HPV (+) 2014 mammogram - has never had onecolonoscopy - has never had one, has discussed with PCP on HRT, which has significantly reduced hot flashes/nights sweats, sleeping better she is an occasional tobacco smoker on antibiotics currently for an ear infection, often gets yeast infections with antibiotic use JESSICA Del Real [address], [place], [address], [facility] 04/28/2024 10:32:10 OBGyn Episode Ob Episode Information Episode Created Date Number of Fetuses Patient Bloodtype Patient rh Status Prepregnancy Weight lbs Domestic Partner Domestic Partner Phone Father Name Information Technology Data Analyst Status 05/17/20 20 1 CLOSED Fetus Data First Name Last Name Admitted to NICU Weight (g) Sex Living Outcome Pediatric Complications Fetus ID Race Codes Race Delivery Type 3203.26 6704 M Full Term [id number] Primary Michi Calculation Initial Michi Date Initial Exam Date Initial Exam Provider Initial Ultrasound Date Last Menstrual Period Date Ultra Sound Weeks Gestation 0 Eighteen To Twenty Week Michi Update Ultra Sound Date Fundal Height At Umbil Quickening Date Ultra Sound Latest Weeks Gestation Final Michi Confirmed By Final Michi Confirmed Date Final Michi Date Ultra Sound Latest Days Gestation 0 0 Menstrual History Last Menstrual Date Menses Monthly On Bcp Conception Prior Menses Frequency Hcg Plus Date Menarche Onset Age Delivery Information Delivery Date Delivery Type Labor Anesthesia Weeks Gestation Incision Type Labor Labor Length Hrs Delivered By Post Complications Tubal Sterilization Discharge Date Comments 8 40 Discharge Information Feeding Method Contraceptive Method Maternal HG B and HCT Levels
--- OUTSIDE RECORDS SUMMARY | 2024-09-05 11:18 | XMS_ITS | Clinical Summary ---
Author Organization [facility] Address [address] [place] [address] Phone Care Team Providers Care Tube Bending Machine Operator Name Role Phone Provider, Unknown Primary Care Provider Unavaila ble Social History Tobacco Use Types Packs/Day Years Used Date Smoking Tobacco: Never Assessed Comments Unknown Sex and Gender Information Value Date Recorded Sex Assigned at Not on file Legal Sex Female 4:22 PM CDT Gender Identity Not on file Sexual Orientation Not on file Plan of Treatment Not on file Care Teams Tube Bending Machine Operator Relationship Specialty Start Date End Date Provider, Unknown UNKNOWN PCP - General 10/27/16
--- OUTSIDE RECORDS SUMMARY | 2024-09-05 11:18 | XMS_ITS | Encounter Summary ---
Author Organization [facility] Address [address] [place] [address] Care Team Providers Care Residential Property Consultant Name Role Phone Skylar Feliciano MD Primary Care Provider [phone] Encounter Details Date Type Department Care Team (Late st Contact Info) Description 05/10/2007 Inpatient Historical [facility] Varinder Renteria MD [address] [place] [id number] Berna Rod MD NO ADDRESS ON FILE Fertility Testing Social History Tobacco Use Types Packs/Day Years Used Date Smoking Tobacco: Never Assessed Comments Unknown Sex and Gender Information Value Date Recorded Sex Assigned at Not on file 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
--- OUTSIDE RECORDS SUMMARY | 2024-09-05 11:18 | XMS_ITS | Encounter Summary ---
Author Organization [facility] Address 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
--- OUTSIDE RECORDS SUMMARY | 2024-09-05 11:19 | XMS_ITS | Clinical Summary ---
Author Organization [facility] Address [address] [place] [address] Dr. 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 Gender Identity Not on file Sexual Orientation Not on file Plan of Treatment Health Maintenance Due Date Last Done Comments DTAP/TDAP/TD VACCINES (1 - Tdap) 1989 HEPATITIS B VACCINES (1 of 3 - 19+ 3-dose series) 1989 HPV/Cotest (21-29) 1991 PAP SMEAR 1991 CERVICAL CANCER SCREENING 2000 HPV/Cotest (30-65) 2000 PAP SMEAR 2000 BREAST CANCER SCREENING 2010 COLORECTAL SCREENING 2015 Colorectal Cancer Screening 2015 FIT-DNA Q 3 years 2015 FIT/FOBT Q 1 year 2015 Flex Sig/CT Colonography Q 5 years 2015 ZOSTER VACCINE (1 of 2) 2020 INFLUENZA VACCINE (#1) 2024 PNEUMOCOCCAL VACCINE 0-49 YEARS Aged Out No longer eligible based on patient's age to complete this topic Care Teams Pulping Machine Operator Relationship Specialty Start Date End Date Skylar Feliciano MD PCP - General 05/25/15
--- OUTSIDE RECORDS SUMMARY | 2024-09-05 11:19 | XMS_ITS | Encounter Summary ---
Author Organization [facility] Address [address] [place] [address] Care Team Providers Care Mail Handler Sorter Name Role Phone Skylar Feliciano MD Primary Care Provider [phone] Encounter Details Date Type Department Care Team (Latest Contact Info) Description 05/11/2000 Outpatient Historical [facility] Brett Aguilar MD [address] 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
--- OUTSIDE RECORDS SUMMARY | 2024-09-05 11:19 | XMS_ITS | Data Portability ---
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 CT c-spine wo: 11/12/23. X-ray b/l hands: 05/25/23. Annual labs: 12/16/22. Annual labs: 10/02/21. US nodule FNA: 11/27/20. CXR: 11/26/20. US thyroid: 11/06/20. Annual labs: 10/03/20. D/w pt in detail about her conditions, recent labs & imagines and further plan of care. Advised pt to go for Mammo and cologuard soon. Advised pt to f/u with her Endo for [place] All meds verified with pt. Meds as directed. Routine skin care explained. Cont OTC shoe insert as directed. Diet and exercise explained in detail. Currently smoking few cigs per days. Encouraged pt to quit. Explained about different options for it. Patches started. Cont f/u with Minesweeping Officer as per schedule. Cont f/u with Endo as per schedule. Cont f/u with Gyne as per schedule. Advised to refer to Counsellor/Psych ; but pt declined. Pt declined for LDCT chest/cxr. Offered to refer to Rheumat; but pt declined. Pt has tried Cymbalta, Lexapro, Trazodone, Zoloft, Xanax in the past, but it did not help her. Pt got s/e from [facility]. HM: WWE - 10/28, normal as per pt. Cont f/u with Gyne as per schedule. Mammo - Never. Pt has an order for it. Colonoscopy - Never. Pt declined. Pt has cologuard kit at home. Flu - Pt declined. Tdap, Pneumo, Shingrix - At HD. F/u in 3 months. Mammo and cologuard before next visit. Annual labs in 10/30. 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 CT c-spine wo: 11/12/23. X-ray b/l hands: 05/25/23. Annual labs: 12/16/22. Annual labs: 10/02/21. US nodule FNA: 11/27/20. CXR: 11/26/20. US thyroid: 11/06/20. Annual labs: 10/03/20. D/w pt in detail about her conditions, recent labs & imagines and further plan of care. Advised pt to go for Mammo and cologuard soon. Advised pt to f/u with her Endo for [place]. [place]. All meds verified with pt. Meds as directed. Routine skin care explained. Cont OTC shoe insert as directed. Diet and exercise explained in detail. Currently smoking few cigs per days. Encouraged pt to quit. Explained about different options for it. Patches started. Cont f/u with Minesweeping Officer as per schedule. Cont f/u with Endo as per schedule. Cont f/u with Gyne as per schedule. Advised to refer to Counsellor/Psych ; but pt declined. Pt declined for LDCT chest/cxr. Offered to refer to Rheumat; but pt declined. Pt has tried Cymbalta, Lexapro, Trazodone, Zoloft, Xanax in the past, but it did not help her. Pt got s/e from [place]. HM: WWE - 03/31, normal as per pt. Cont f/u with Gyne as per schedule. Mammo - Never. Pt has an order for it at home. Colonoscopy - Never. Pt declined. Pt has cologuard kit at home. Flu - Pt declined. Tdap, Pneumo, Shingrix - At HD. F/u in 3-4 months. Mammo and cologuard before next visit. Annual labs in 10/30. [email or web address] Not available 03/21/2024 09:32:15 04/20/2024 04/20/2024 The patient gave verbal consent using TelePhonic services and the consent is documented in the medical record prior to using the service. The patient has been informed of what a TeleMedicine visit is. Patient is located at home. Provider is located at office. Names and roles of persons in addition to the patient and provider participating in telemedicine services include staff. The patient had a 11 minute TeleMedicine consultation via phone call to discuss the following: [email or web address] Not available 04/20/2024 14:31:50 Plan of Treatment Reminders Order Date Submit Date Provider Last Modified By Organization Details Last Modified Time Details Appointments Sick/Acut e 2024 09:30A M Tiburcio Hong MD Not available Not available Not available Follow Up 15 2024 08:15A JYOTI Aguirre Not available Not available Not available Lab None recorded. Referral None recorded. Procedures None recorded. Surgeries None recorded. Imaging XR, hand, 3 or more view 2024 025 [facility] [address] [place] [address], [id number], 09/05/2024 11:50:27 XR, foot, 3 or more view 2024 025 [facility] [address] [place] [address], [id number], 09/05/2024 11:54:15 XR, wrist, 3 or more view 2024 [facility]), [address] [facility], [place], [address], 09/05/2024 11:51:30 Medication Orders spironola ctone 50 mg tablet 2024 [facility] #[id number], [address] [place] [address], [id number], 09/05/2024 10:44:37 buspirone 10 mg tablet 2024 [facility] #68722, [address] [facility] [address] [place] [address], [id number], 09/05/2024 10:44:53 pregabali n 75 mg capsule 2024 [facility] #83941, [address] [place] [address], [id number], 09/05/2024 10:38:21 Medrol (Dre) 4 mg tablets in a dose pack 2023 [facility] #68224, [address] [place] [address], [id number], 04/20/2024 14:55:22 amoxicill in 875 mg-potass ium clavulana te 125 mg tablet [email or web address] [facility] #77741, [address] [place] [address], [id number], 09/05/2024 10:40:05 spironola ctone 50 mg tablet 2023 024 [facility] #73895, [address] [place] [address], [id number], 03/21/2024 09:10:00 naproxen 500 mg tablet 2023 [facility] #19202, [address], [place], [place], [id number], 03/21/2024 09:09:51 buspirone 10 mg tablet 2023 024 [facility] #12432, [address], [place], [place], [id number], 03/21/2024 09:10:00 fluticaso ne propionat e 50 mcg/actua tion nasal spray,lizeth pension 2023 [facility] #31690, [address], [place], [place], [id number], 03/21/2024 09:09:50 cetirizin e 10 mg tablet 2023 024 [facility] #61472, [address], [place], [place], [id number], 03/21/2024 09:10:12 pregabali n 50 mg capsule 2023 024 [email or web address] [facility] #50991, [address], [place], [place], [id number], 09/05/2024 10:44:03 spironola ctone 50 mg tablet 2023 024 [facility] #04678, [address], [place], [place], [id number], 11/30/2023 12:50:20 naproxen 500 mg tablet 2023 024 [facility] #07509, [address], [place], [place], [id number], 11/30/2023 12:50:22 buspirone 10 mg tablet 2023 [facility] #34907, [address] [facility], [place], [place], [id number], 11/30/2023 12:50:24 fluticaso ne propionat e 50 mcg/actua tion nasal spray,lizeth pension 2023 [facility] #61982, [address] [place] [address], [id number], 11/30/2023 12:50:22 cetirizin e 10 mg tablet 2023 [facility] #71862, [address] [facility] [address] [facility], [place], [place], [id number], 11/30/2023 12:50:21 pregabali n 50 mg capsule 2023 [email or web address] [facility] #56914, [address] [place] [address], [id number], 09/05/2024 10:44:03 Patient TargetsNo targets recorded. Patient Instructions Encounter Date Encounter Id Patient Instructions Last Modified By Organization Details Last Modified Time 04/20/2024 [id number] Due to the COVID-19 (Novel Coronavirus) pandemic, it is within this context (and with the understanding that this method of patient encounter is in the patient s best interest as well as the health and safety of other patients and the public) that [facility] is being provided for this patient encounter rather than a [id number] visit. This patient encounter is appropriate at this time. This patient has been advised of the potential risks and limitations of this mode of treatment (including, but not limited to, the absence of in-person examination) and has agreed to be treated in a remote fashion despite these risks. Any and all of the patient s /patient s family s questions on this issue have been answered, and I have made no promises or guarantees to the patient. The patient has also been advised to contact this office for worsening conditions or problems, and seek emergency medical treatment and/or call 911 if the patient deems either necessary. HPI and/or vitals, if listed, were provided by the patient. [email or web address] Not available 04/20/2024 14:31:18 Reason for Referral None Reported. Results Created Date Observation Date Name Description Value Unit Range Abnormal Flag Note LastModifiedBy Organization Detail LastModifiedTime 11/18/19 24 11/18/2023 CBC/C OMPLE TE BLD COUNT W/DIF F white blood cells 8.1 x10'3 /uL 4.2-10 .8 Not Available [facility] (Lab) [address] [place], [address], 11/18/2023 13:52:20 11/18/19 24 11/18/2023 CBC/C OMPLE TE BLD COUNT W/DIF F red blood cells 4.76 x10'6 /uL 3.80-5 .20 Not Available [facility] (Lab) [address] [place], [address], 11/18/2023 13:52:20 11/18/19 24 11/18/2023 CBC/C OMPLE TE BLD COUNT W/DIF F hemoglobin 13.8 g/dL 12.0-1 5.6 Not Available [facility] (Lab) [address] [place], [address], 11/18/2023 13:52:20 11/18/19 24 11/18/2023 CBC/C OMPLE TE BLD COUNT W/DIF F hematocrit 42.3 % 35.7-4 5.7 Not Available [facility] (Lab) [address] [place], [address], 11/18/2023 13:52:20 11/18/19 24 11/18/2023 CBC/C OMPLE TE BLD COUNT W/DIF F mean red cell volume 88.9 fL 82.0-9 9.0 Not Available [facility] (Lab) [address] [place], [address], 11/18/2023 13:52:20 11/18/19 24 11/18/2023 CBC/C OMPLE TE BLD COUNT W/DIF F mean red cell hemoglobin 29.0 pg 27.0-3 3.0 Not Available [facility] (Lab) [address] [place], [address], 11/18/2023 13:52:20 11/18/19 24 11/18/2023 CBC/C OMPLE TE BLD COUNT W/DIF F mean RBC HGB concentratio n 32.6 g/dL 31.0-3 6.0 Not Available [facility] (Lab) [address] [place], [address], 11/18/2023 13:52:20 11/18/19 24 11/18/2023 CBC/C OMPLE TE BLD COUNT W/DIF F red cell distribution width 14.1 % 11.8-1 5.5 Not Available [facility] (Lab) [address] [place], [address], 11/18/2023 13:52:20 11/18/19 24 11/18/2023 CBC/C OMPLE TE BLD COUNT W/DIF F platelets 344 x10'3 /uL 150-40 0 Not Available [facility] (Lab) [address] [place], [address], 11/18/2023 13:52:20 11/18/19 24 11/18/2023 CBC/C OMPLE TE BLD COUNT W/DIF F mean platelet volume 10.1 fL 9.0-12 .4 Not Available [facility] (Lab) [address] [place], [address], 11/18/2023 13:52:20 11/18/19 24 11/18/2023 CBC/C OMPLE TE BLD COUNT W/DIF F neutrophils 60.0 % 39.0-7 2.0 Not Available [facility] (Lab) [address] [place], [address], 11/18/2023 13:52:20 11/18/19 24 11/18/2023 CBC/C OMPLE TE BLD COUNT W/DIF F lymphocytes 30.8 % 16.0-4 7.0 Not Available [facility] (Lab) [address] [place], [address], 11/18/2023 13:52:20 11/18/19 24 11/18/2023 CBC/C OMPLE TE BLD COUNT W/DIF F monocytes 6.3 % 5.0-12 .0 Not Available [facility] (Lab) [address] [place], [address], 11/18/2023 13:52:20 11/18/19 24 11/18/2023 CBC/C OMPLE TE BLD COUNT W/DIF F eosinophils 2.0 % 1.0-7. 0 Not Available [facility] (Lab) [address] [place], [address], 11/18/2023 13:52:20 11/18/19 24 11/18/2023 CBC/C OMPLE TE BLD COUNT W/DIF F basophils 0.5 % 0.0-2. 0 Not Available [facility] (Lab) [address] [place], [address], 11/18/2023 13:52:20 11/18/19 24 11/18/2023 CBC/C OMPLE TE BLD COUNT W/DIF F immature granulocytes 0.4 % 0.00-0 .50 Not Available [facility] (Lab) [address] [place], [address], 11/18/2023 13:52:20 11/18/19 24 11/18/2023 CBC/C OMPLE TE BLD COUNT W/DIF F neutrophils, absolute count 4.88 x10'3 /uL 1.5-8. 0 Not Available [facility] (Lab) [address] [place], [address], 11/18/2023 13:52:20 11/18/19 24 11/18/2023 CBC/C OMPLE TE BLD COUNT W/DIF F lymphocytes, absolute count 2.50 x10'3 /uL 1.07-3 .43 Not Available [facility] (Lab) [address] [place], [address], 11/18/2023 13:52:20 11/18/19 24 11/18/2023 CBC/C OMPLE TE BLD COUNT W/DIF F monocytes, absolute count 0.51 x10'3 /uL 0.29-0 .99 Not Available [facility] (Lab) [address] [place], [address], 11/18/2023 13:52:20 11/18/19 24 11/18/2023 CBC/C OMPLE TE BLD COUNT W/DIF F eosinophils, absolute count 0.16 x10'3 /uL 0.02-0 .53 Not Available [facility] (Lab) [address] [place], [address], 11/18/2023 13:52:20 11/18/19 24 11/18/2023 CBC/C OMPLE TE BLD COUNT W/DIF F basophils, absolute count 0.04 x10'3 /uL 0.01-0 .08 Not Available [facility] (Lab) [address] [place], [address], 11/18/2023 13:52:20 11/18/19 24 11/18/2023 CBC/C OMPLE TE BLD COUNT W/DIF F immature granulocytes ,absolute 0.03 x10'3 /uL 0.00-0 .05 Not Available [facility] (Lab) [address] [place], [address], 11/18/2023 13:52:20 11/18/19 24 11/18/2023 CBC/C OMPLE TE BLD COUNT W/DIF F nucleated red blood cells 0.0 % -0 Not Available [facility] (Lab) [address] [place], [address], 11/18/2023 13:52:20 11/18/19 24 11/18/2023 CBC/C OMPLE TE BLD COUNT W/DIF F NRBC# 0.00 x10'3 /uL Not Available [facility] (Lab) [address] [place], [address], 11/18/2023 13:52:20 11/18/19 24 11/18/2023 URINA LYSIS COMPL ETE/I RIS W/RFX color YELLOW Not Available [facility] (Lab) [address] [place], [address], 11/18/2023 14:07:40 11/18/19 24 11/18/2023 URINA LYSIS COMPL ETE/I RIS W/RFX appear TURBID abnormal Not Available [facility] (Lab) [address] [place], [address], 11/18/2023 14:07:40 11/18/19 24 11/18/2023 URINA LYSIS COMPL ETE/I RIS W/RFX specific gravity 1.014 1.001- 1.030 Not Available [facility] (Lab) [address] [place], [address], 11/18/2023 14:07:40 11/18/19 24 11/18/2023 URINA LYSIS COMPL ETE/I RIS W/RFX pH 7.0 pH_un its 5.0-9. 0 Not Available [facility] (Lab) [address] [place], [address], 11/18/2023 14:07:40 11/18/19 24 11/18/2023 URINA LYSIS COMPL ETE/I RIS W/RFX leukocytes NEGATI VE yue/u L negati ve- Not Available [facility] (Lab) [address] [place], [address], 11/18/2023 14:07:40 11/18/19 24 11/18/2023 URINA LYSIS COMPL ETE/I RIS W/RFX nitrite NEGATI VE negati ve- Not Available [facility] (Lab) [address] [place], [address], 11/18/2023 14:07:40 11/18/19 24 11/18/2023 URINA LYSIS COMPL ETE/I RIS W/RFX protein NEGATI VE mg/dL negati ve- Not Available [facility] (Lab) [address] [place], [address], 11/18/2023 14:07:40 11/18/19 24 11/18/2023 URINA LYSIS COMPL ETE/I RIS W/RFX glucose NORMAL mg/dL normal - Not Available [facility] (Lab) [address] [place], [address], 11/18/2023 14:07:40 11/18/19 24 11/18/2023 URINA LYSIS COMPL ETE/I RIS W/RFX ketones NEGATI VE mg/dL negati ve- Not Available [facility] (Lab) [address] [place], [address], 11/18/2023 14:07:40 11/18/19 24 11/18/2023 URINA LYSIS COMPL ETE/I RIS W/RFX urobilinogen NORMAL mg/dL normal - Not Available [facility] (Lab) [address] [place], [address], 11/18/2023 14:07:40 11/18/19 24 11/18/2023 URINA LYSIS COMPL ETE/I RIS W/RFX bilirubin NEGATI VE mg/dL negati ve- Not Available [facility] (Lab) [address] [place], [address], 11/18/2023 14:07:40 11/18/19 24 11/18/2023 URINA LYSIS COMPL ETE/I RIS W/RFX blood NEGATI VE mg/dL negati ve- Not Available [facility] (Lab) [address] [place], [address], 11/18/2023 14:07:40 11/18/19 24 11/18/2023 URINA LYSIS COMPL ETE/I RIS W/RFX white blood cells 0-8 /i??h pfi?? 0-8 Not Available [facility] (Lab) [address] [place], [address], 11/18/2023 14:07:40 11/18/19 24 11/18/2023 URINA LYSIS COMPL ETE/I RIS W/RFX red blood cells 0-4 /i??h pfi?? 0-4 Not Available [facility] (Lab) [address] [place], [address], 11/18/2023 14:07:40 11/18/19 24 11/18/2023 URINA LYSIS COMPL ETE/I RIS W/RFX bacteria NONE Not Available [facility] (Lab) [address] [place], [address], 11/18/2023 14:07:40 11/18/19 24 11/18/2023 URINA LYSIS COMPL ETE/I RIS W/RFX mucous OCCASI ONAL /i??l pfi?? abnormal Not Available [facility] (Lab) [address] [place], [address], 11/18/2023 14:07:40 11/18/19 24 11/18/2023 URINA LYSIS COMPL ETE/I RIS W/RFX squamous epithelial PACKED FIELD /i??l pfi?? abnormal Not Available [facility] (Lab) [address] [place], [address], 11/18/2023 14:07:40 11/18/19 24 11/18/2023 LIPID PANEL cholesterol 155 mg/dL 140-19 9 [facility] JOHN NSUS RECOM MENDA TION FOR RITA STERO L: ADULT CHILD LOW RISK: <200 <170 BORDE RLINE : <200- 239 ----- HIGH RISK: >240 >200 Not Available [facility] (Lab) [address] [place], [address], 11/18/2023 14:21:58 11/18/19 24 11/18/2023 LIPID PANEL triglyceride s 64 mg/dL 0-150 [facility] JOHN NSUS REPOR T RECOM MENDA TION FOR TRIGL YCERI TIMO: ADULT CHILD LOW RISK: <150 ----- BODER LINE: 150-1 99 ----- HIGH RISK: >200 ----- Not Available [facility] (Lab) [address] [place], [address], 11/18/2023 14:21:58 11/18/19 24 11/18/2023 LIPID PANEL HDL cholesterol 76 mg/dL 40- Not Available [facility] (Lab) [address] [place], [address], 11/18/2023 14:21:58 11/18/19 24 11/18/2023 LIPID PANEL LDL cholesterol, calculated 66 mg/dL 0-130 [facility] JOHN NSUS REPOR T RECOM MENDA TIONS FOR LDL: ADULT CHILD LOW RISK <130 <110 (OPTI MAL LDL) <100 ----- BORDE RLINE : 130-1 59 ----- HIGH RISK: >160 >130 A TRIGL YCERI DE RESUL T >400 INVAL IDATE S THE CALCU LATIO N FOR LDL FRACT IONAT ION - THE LDL RESUL T WILL NOT BE REPOR JUNE. Not Available [facility] (Lab) [address] [place], [address], 11/18/2023 14:21:58 11/18/19 24 11/18/2023 COMPR EHENS LUDIN METAB OLIC PANEL sodium 139 mmol/ L 137-14 5 Not Available [facility] (Lab) [address] [place], [address], 11/18/2023 14:22:08 11/18/19 24 11/18/2023 COMPR EHENS LUDIN METAB OLIC PANEL potassium 4.5 mmol/ L 3.5-5. 1 Not Available [facility] (Lab) [address] [place], [address], 11/18/2023 14:22:08 11/18/19 24 11/18/2023 COMPR EHENS LUDIN METAB OLIC PANEL chloride 109 mmol/ L 98-107 high Not Available [facility] (Lab) [address] [place], [address], 11/18/2023 14:22:08 11/18/19 24 11/18/2023 COMPR EHENS LUDIN METAB OLIC PANEL carbon dioxide 26 mmol/ L 22-30 Not Available [facility] (Lab) [address] [place], [address], 11/18/2023 14:22:08 11/18/19 24 11/18/2023 COMPR EHENS LUDIN METAB OLIC PANEL anion gap 8.5 mmol/ L 14-22 low Not Available [facility] (Lab) [address] [place], [address], 11/18/2023 14:22:08 11/18/19 24 11/18/2023 COMPR EHENS LUDIN METAB OLIC PANEL glucose 98 mg/dL 70-99 Not Available [facility] (Lab) [address] [place], [address], 11/18/2023 14:22:08 11/18/19 24 11/18/2023 COMPR EHENS LUDIN METAB OLIC PANEL BUN 13 mg/dL 8-19 Not Available [facility] (Lab) [address] [place], [address], 11/18/2023 14:22:08 11/18/19 24 11/18/2023 COMPR EHENS LUDIN METAB OLIC PANEL creatinine 0.65 mg/dL 0.66-1 .25 low Not Available [facility] (Lab) [address] [place], [address], 11/18/2023 14:22:08 11/18/19 24 11/18/2023 COMPR EHENS LUDIN METAB OLIC PANEL GFR >60 Refer ence Range : [place] ge GFR Healt hy Adult : >60 mL/mi n/1.7 3 m2 Chron ic Kidne y Disea se: 15-60 mL/mi n/1.7 3 m2 Kidne y Failu re: <15/m L/min /1.73 m2 www.n iddk. nih.g ov The MDRD study equat ion has not been valid ated in child abram <18 years of age; pregn ant women ; the elder ly >85 years of age; or in some racia l or ethni c subgr oups, such as Hisnv nics. Outsi de the valid ated donnie eters , estim ated GFR is less accur ate, requi ring clini alfonso judgm ent on a case- by-ca se basis . Clini alfonso inter preta tion for other races and ages must be made by the clini lion. The MDRD study equat ion has not been valid ated for the evalu ation of serum creat inine relat ed to nutri helena l statu s or medic ation usage . For perso ns <18 years of age, a pedia tric GFR calcu lator is avail able on the [facility] websi te: https ://ww w.kid prateek.o rg/pr ofess ional s/kdo qi/gf r_cal culat or Not Available [facility] (Lab) [address] [place], [address], 11/18/2023 14:22:08 11/18/19 24 11/18/2023 COMPR EHENS LUDIN METAB OLIC PANEL alkaline phosphatase 70 U/L 38-126 Not Available [facility] (Lab) [address] [place], [address], 11/18/2023 14:22:08 11/18/19 24 11/18/2023 COMPR EHENS LUDIN METAB OLIC PANEL alanine aminotransfe rase 18 U/L 0-35 Not Available [facility] (Lab) [address] [place], [address], 11/18/2023 14:22:08 11/18/19 24 11/18/2023 COMPR EHENS LUDIN METAB OLIC PANEL aspartate aminotransfe rase 24 U/L 15-37 Not Available [facility] (Lab) [address] [place], [address], 11/18/2023 14:22:08 11/18/19 24 11/18/2023 COMPR EHENS LUDIN METAB OLIC PANEL bilirubin, total 0.70 mg/dL 0.20-1 .30 Not Available [facility] (Lab) [address] [place], [address], 11/18/2023 14:22:08 11/18/19 24 11/18/2023 COMPR EHENS LUDIN METAB OLIC PANEL calcium 8.8 mg/dL 8.4-10 .2 Not Available [facility] (Lab) [address] [place], [address], 11/18/2023 14:22:08 11/18/19 24 11/18/2023 COMPR EHENS LUDIN METAB OLIC PANEL total protein 6.7 g/dL 6.3-8. 2 Not Available [facility] (Lab) [address] [place], [address], 11/18/2023 14:22:08 11/18/19 24 11/18/2023 COMPR EHENS LUDIN METAB OLIC PANEL albumin 4.2 g/dL 3.4-5. 0 Not Available [facility] (Lab) [address] [place], [address], 11/18/2023 14:22:08 11/18/19 24 11/18/2023 COMPR EHENS LUDIN METAB OLIC PANEL globulin 2.5 g/dL 2.6-4. 2 low Not Available [facility] (Lab) [address] [place], [address], 11/18/2023 14:22:08 11/18/19 24 11/18/2023 COMPR EHENS LUDIN METAB OLIC PANEL A/G ratio 1.7 ratio 1.0-2. 0 Not Available [facility] (Lab) [address] [place], [address], 11/18/2023 14:22:08 11/18/19 24 11/18/2023 URIC ACID SERUM uric acid 3.8 mg/dL 2.5-6. 2 Not Available [facility] (Lab) [address] [place], [address], 11/18/2023 14:22:13 11/18/19 24 11/18/2023 VITAM IN B12 (ROBERT GERHARD ) vb12 320 pg/mL 239-93 1 Not Available [facility] (Lab) [address] [place], [address], 11/18/2023 16:06:43 11/18/19 24 11/18/2023 FOLAT E, SERUM /PLAS MA folate 8.42 NG/mL 2.76-2 0.0 Not Available [facility] (Lab) [address] [place], [address], 11/18/2023 16:06:48 11/18/19 24 11/18/2023 VITAM IN D 25-HY DROXY vd25oh 35.4 NG/mL 30-100 Vitam in D Statu s: Defic ient: <20 ng/mL Insuf ficie nt: 20-29 ng/mL Suffi cient : 30-10 0 ng/mL Not Available [facility] (Lab) [address] [place], [address], 11/18/2023 14:36:22 11/18/19 24 11/18/2023 RHEUM ATOID FACTO R rf <8.6 IU/mL 0.0-11 .9 Not Available [facility] (Lab) [address] [place], [address], 11/18/2023 15:36:44 11/18/19 24 11/18/2023 HEMOG LOBIN A1C HA1C 5.6 % 4.0-6. 0 Diabe omar Scree reagan Crite luke: <5.7% Consi stent with absen ce of diabe omar 5.7-6 .4% Consi stent with incre ased risk for diabe omar (pred iabet es) >OR=6 .5% Consi stent with diabe omar REFER ENCE: Diabe omar Care 2016, 39(James ppl.1 ):s13 -s22 Not Available [facility] (Lab) [address] [place], [address], 11/18/2023 15:45:35 11/18/19 24 11/18/2023 TSH W/REF TAL FT4 TSH with reflex free T4 0.213 uIU/m L 0.465- 4.680 low Not Available [facility] ([facility]) [address] [place], [address], 11/18/2023 16:06:03 11/18/19 24 11/18/2023 T4 FREE free T4 0.99 NG/dL 0.78-2 .19 Not Available [facility] (Lab) [address] [place], [address], 11/18/2023 17:54:29 11/18/19 24 11/20/2023 МАРИНА SCREE N RFX TITER /MATTHIEU REINA antinuclear antibodies, ifa NEGATI VE Negat ludin <1:80 Borde rline 1:80 Posit ludin >1:80 ICAP nomen clatu re: AC-0 For more infor jeff n about Hep-2 cell patte rns use ANApa ttern s.org , the offic artemio mendes for the Inter natio nal Conse nsus on Antin uclea r Antib lesa (МАРИНА) Jonas rns (ICAP ). Perfo rmed at: - [facility] n [address] [facility], [place] [address] Lab Direc tor: Benjamin jose PhD, Phone : [phone] Not Available [facility] ([facility]) [address] [place], [address], 11/20/2023 12:12:07 11/12/19 24 11/12/2023 CT, cervi alfonso spine , w/o contr ast No observ ation record ed. [email or web address] [facility] [address] [place], [address], 11/30/2023 12:48:18 11/12/19 24 11/12/2023 CT, head + neck, w/o contr ast No observ ation record ed. [email or web address] [facility] [address] [place], [address], 11/12/2023 14:21:54 09/06/19 25 09/05/2024 XR, hand, 3 or more view No observ ation record ed. [address], [address], 09/05/2024 11:50:27 09/06/19 25 09/05/2024 XR, wrist , 3 or more view No observ ation record ed. [address], [address], 09/05/2024 11:51:30 09/06/19 25 09/05/2024 XR, hand, 3 or more view No observ ation record ed. [address], [address], 09/05/2024 11:52:17 09/06/19 25 09/05/2024 XR, wrist , 3 or more view No observ ation record ed. [facility] [address] [facility] [address], [place], [address], 09/05/2024 11:53:16 09/06/1909/05/2024 XR, foot, 3 or more view No observ ation record ed. [facility] [address], [place], [address], 09/05/2024 11:54:15 09/06/1909/05/2024 XR, hand, 3 or more view No observ ation record ed. [facility] [address] [facility] [address], [place], [address], 09/05/2024 12:16:49 Result Notes None recorded. Problems Name Problem SNOMED Code Status Onset Date Resolution Date Notes Provider Name and Address Organization Details Recorded Time Impacted cerumen of bilateral ears 6256858228779 108 Active 2021 Not Available [facility] 3 22:45:57 Anxiety disorder 206288514 Active 2020 Not Available [facility] 3 22:45:57 Foot callus 806819285 Active 2021 Not Available [facility] 3 22:45:57 Thyroid nodule 240145426 Active 2021 Not Available [facility] 3 22:45:57 Loss of hair 458785395 Active 2021 Not Available [facility] 3 22:45:57 Hyperthyro idism 11037023 Active 2020 Not Available [facility] 3 22:45:57 Seasonal allergic rhinitis 499424498 Active 2021 Not Available [facility] 3 22:45:58 Porokerato sis 819505403 Active 2020 Not Available [facility] 3 22:45:58 History of thyroidect leighann 650195721 Active 2020 Not Available [facility] 3 22:45:58 Chronic insomnia 337871491 Active 2020 Not Available [facility] 3 22:45:58 Smoker 83340597 Active 2020 Not Available [facility] 3 22:45:58 Microscopi alycia ortiz 615345252 Active 2022 Tiburcio Hong MD [address], [place], [address] , [place] [facility] 3 09:58:25 Pain of bilateral hands 0298107434611 9109 Active 2022 Tiburcio Hong MD [address], [place], [address] , [facility] 3 10:03:39 Sinusitis 35848554 Active 2023 Tiburcio Hong MD [address], [place], [address] , [place] [facility] 4 09:35:17 Neuropathy 476114784 Active 2023 Tiburcio Hong MD [address], [place], [address] , [place] [email or web address] 4 09:09:20 Headache 49456597 Active 2023 Tiburcio Hong MD [address], [address], [place], [address] , [place] [facility] 4 14:32:07 Nasal congestion 41760810 Active 2023 Tiburcio Hong MD [address], [address], [place], [address] , [place] [facility] 4 14:32:12 Cough 14324244 Active 2023 Tiburcio Hong MD [address], [place], [address] , [place] [facility] 4 14:32:16 Bilateral wrist pain 2203458649880 9105 Active 2024 Tiburcio Hong MD [address], [place], [address] , [place] [facility] 5 10:32:40 Pain in right foot 0162492631864 07 Active 2024 Tiburcio Hong MD [address], [place], [address] , [email or web address] [place] [facility] 5 10:33:23 Pain in left foot 9662033036471 07 Active 2024 Tiburcio Hong MD [address], [place], [address] , [employer] [email or web address] 5 10:34:30 Arthritis 2124451 Active 2024 Tiburcio Hong MD [address], [place], [address] , [email or web address] [place] [facility] [place] [email or web address] [employer] 5 10:43:50 Problem Notes None recorded. Procedures Surgical History Date Name Laterality Status Provider Name and Address Organization Details Recorded Time 4 Smoking Cessation completed MD Jessica [address], [place], [address], [email or web address] 03/21/2024 09:09:56 4 Smoking Cessation completed MD Jessica [address], [place], [address], [email or web address] 10/14/2023 09:01:20 4 Smoking Cessation completed MD Jessica [address], [place], [address], [email or web address] 08/11/2023 14:55:29 3 Smoking Cessation completed MD Jessica [address], [place], [address], [facility] 05/05/2023 09:11:39 3 Smoking Cessation completed MD Jessica [address], [place], [address], [email or web address] 03/02/2023 09:16:52 05/23/202 3 Smoking Cessation completed Tiburcio Hong MD [address], [place], [address], [facility] [employer] [facility] [employer] [facility] 10/28/2022 09:02:04 3 Smoking Cessation completed Tiburcio Hong MD [address], [place], [address], [facility] [employer] [facility] [employer] [facility] 08/25/2022 09:21:03 Thyroid Surgery completed Not Available [facility] 08/06/2022 22:43:56 Tubal Ligation completed Not Available [facility] 08/06/2022 22:43:56 Imaging Results Imaging Date Name Status LastModified by Organiz ation Details LastModified Time 11/12/2023 CT, cervical spine, w/o contrast completed [facility] [address] [place], [address], 11/30/2023 12:48:18 11/12/2023 CT, head + neck, w/o contrast completed [email or web address] [facility] [address] [place], [address], 11/12/2023 14:21:54 09/05/2024 XR, hand, 3 or more view active [address], [address], 09/05/2024 11:50:27 09/05/2024 XR, wrist, 3 or more view active [address], [address], 09/05/2024 11:51:30 09/05/2024 XR, hand, 3 or more view active [address], [address], 09/05/2024 11:52:17 09/05/2024 XR, wrist, 3 or more view active [address], [address], 09/05/2024 11:53:16 09/05/2024 XR, foot, 3 or more view active [place] [address] [facility] [address], [address], 09/05/2024 11:54:15 09/05/2024 XR, hand, 3 or more view active [facility] [address] [facility] [address], [place], [address], 09/05/2024 12:16:49 Procedure Notes None recorded. Medical Equipment None Reported. Allergies Allergen ID Allergen Name Allergen Category Reaction Reaction Severity Criticality Documentation Date Start Date Code Code System Note Provider Name and Address Organization Details Recorded Time 06379 codeine medicatio n Not available Not available Not available 08/06/2022 2670 RxNorm Not Available [facility] 3 22:48:29 58773 diclofena c Not available abdominal pain severe Not available 10/14/2023 3355 RxNorm Tiburcio Hong MD [address] [facility] [address], [address] [place] [address] [employer] 4 09:21:11 Medications Name Sig Start Date Stop Date Status Note LastModified by Organization Details LastModified Time doxycyclin e hyclate 100 mg capsule TAKE 1 CAPSULE BY MOUTH EVERY DAY AT BEDTIME 02/19 completed Not Available Not Available Not Available nicotine 14 mg/24 hr daily transderma l patch APPLY 1 PATCH TOPICALLY TO THE SKIN EVERY DAY DIRECTED 08/25 completed never used this Not Available Not Available Not Available Zyrtec-D 5 mg-120 mg tablet,ext ended release TAKE 1 TABLET BY MOUTH EVERY 12 HOURS NEEDED 05/05 completed Not Available Not Available Not Available ammonium lactate 12 % lotion Apply 2 applicati ons every day by topical route as directed. 05/05 completed Not Available Not Available Not Available trazodone 50 mg tablet TAKE 1 TABLET BY MOUTH EVERY DAY AT BEDTIME 05/05 completed Not Available Not Available Not Available cetirizine 10 mg tablet TAKE 1 TABLET BY MOUTH EVERY DAY DIRECTED active Not Available Not Available No t Available fluconazol e 150 mg tablet TAKE 1 TABLET BY MOUTH NOW. REPEAT IN 72 HOURS NEEDED 09/05 completed Not Available Not Available Not Available valacyclov ir 1 gram tablet TAKE 1 TABLET BY MOUTH EVERY 12 HOURS 05/05 completed Not Available Not Available Not Available prednisone 20 mg tablet TAKE 2 TABLETS BY MOUTH EVERY DAY WITH FOOD FOR 5 DAYS 08/10 completed Not Available Not Available Not Available clonazepam 0.5 mg tablet TAKE 1 TABLET BY MOUTH EVERY 24 HOURS NEEDED 09/05 completed Not Available Not Available Not Available Debrox 6.5 % ear drops INSTILL 4 DROPS INTO AFFECTED EAR(S) BY OTIC ROUTE 2 TIMES PER DAY 08/25 completed Not Available Not Available Not Available metronidaz ole 500 mg tablet TAKE 1 TABLET BY MOUTH TWICE DAILY WITH MEALS FOR 7 DAYS 04/20 completed Not Available Not Available Not Available alprazolam 0.25 mg tablet TAKE 1 TABLET BY MOUTH EVERY 24 HOURS NEEDED 03/02 completed Not Available Not Available Not Available estradiol 1 mg tablet TAKE 1 TABLET BY MOUTH EVERY DAY active Not Available Not Available No t Available temazepam 15 mg capsule Take 1 capsule every day by oral route at bedtime for 30 days. 04/22 completed Not Available Not Available Not Available trazodone 100 mg tablet TAKE 1 TABLET BY MOUTH EVERY DAY AT BEDTIME active Not Available Not Available No t Available cephalexin 500 mg capsule TAKE 1 CAPSULE BY MOUTH TWICE DAILY FOR 7 DAYS 10/02 completed Not Available Not Available Not Available oseltamivi r 75 mg capsule TAKE 1 CAPSULE BY MOUTH TWICE A DAY 10/02 completed Not Available Not Available Not Available buspirone 10 mg tablet TAKE 1 TABLET BY MOUTH EVERY 12 HOURS NEEDED 2024 active Not Available Not Available Not Avai lable diclofenac sodium 75 mg tablet,del ayed release TAKE 1 TABLET BY MOUTH EVERY 12 HOURS NEEDED 10/13 completed Not Available Not Available Not Available levofloxac in 500 mg tablet TAKE 1 TABLET BY MOUTH EVERY 24 HOURS FOR 7 DAYS 08/25 completed Not Available Not Available Not Available zolpidem 10 mg tablet TAKE 1 TABLET BY MOUTH EVERY DAY NEEDED FOR SLEEP 11/07 completed Not Available Not Available Not Available methylpred nisolone 4 mg tablets in a dose pack FOLLOW PACKAGE DIRECTION S 09/05 completed Not Available Not Available Not Available SSD 1 % topical cream 10/02 completed Not Available Not Available Not Available fluticason e propionate 50 mcg/actuat ion nasal spray,susp ension SHAKE LIQUID AND USE 1 SPRAY IN EACH NOSTRIL EVERY DAY active Not Available Not Available No t Available sertraline 50 mg tablet Take 1 tablet every day by oral route in the morning for 30 days. active Not Available Not Available No t Available naproxen 500 mg tablet TAKE 1 TABLET BY MOUTH EVERY 12 HOURS DIRECTED active Not Available Not Available No t Available spironolac tone 50 mg tablet TAKE 2 TABLETS BY MOUTH EVERY DAY IN THE MORNING 2024 active Not Available Not Available Not Avai lable progestero ne micronized 100 mg capsule TAKE 1 CAPSULE BY MOUTH EVERY DAY 09/05 completed Not Available Not Available Not Available amoxicilli n 875 mg-potassi um clavulanat e 125 mg tablet TAKE 1 TABLET BY MOUTH EVERY 12 HOURS WITH MEALS FOR 10 DAYS 09/05 completed Not Available Not Available Not Available buspirone 15 mg tablet TAKE 1 TABLET BY MOUTH EVERY 12 HOURS DIRECTED 04/22 completed Not Available Not Available Not Available azithromyc in 500 mg tablet TAKE 2 TABLETS BY MOUTH 08/25 completed Not Available Not Available Not Available escitalopr am 10 mg tablet TAKE 1 TABLET BY MOUTH ONCE DAILY IN THE EVENING 10/02 completed Not Available Not Available Not Available duloxetine 60 mg capsule,de layed release TAKE 2 CAPSULES BY MOUTH ONCE DAILY IN THE MORNING 10/02 completed Not Available Not Available Not Available pregabalin 50 mg capsule 09/05 completed Not Available Not Available Not Available pregabalin 75 mg capsule Take 1 capsule twice a day by oral route as directed for 30 days. 2024 active Not Available Not Available Not Avai lable ramelteon 8 mg tablet TAKE 1 TABLET BY MOUTH EVERY DAY IN THE MORNING 09/24 completed Not Available Not Available Not Available Vitals Date Recorded Body height Body mass index (BMI) Body weight Body temperature Heart rate Oxygen saturation Oxygen saturation in Arterial blood by Pulse oximetry Systolic blood pressure Diastolic blood pressure Provider Name and Address Organization Details Last Updated DateTime 4 157.48 cm 24 kg/m2 26210.9 5 g 97.9 [degF] 76 /min 98 % 98 % 100 mm[Hg] 66 mm[Hg] Aidan Nina [employer] [facility] 4 12:36:52 Date Recorded Body height Body mass index (BMI) Body weight Body temperature Heart rate Respiratory rate Oxygen saturation Oxygen saturation in Arterial blood by Pulse oximetry Systolic blood pressure Diastolic blood pressure Provider Name and Address Organization Details Last Updated DateTime 4 157.48 cm 24 kg/m2 59521.3 g 99.1 [degF] 90 /min 16 /min 98 % 98 % 104 mm[Hg] 70 mm[Hg] Aidan Nina MD [employer] [facility] [employer] [facility] 4 09:03:27 Date Recorded Body height Body mass index (BMI) Body weight Body temperature Oxygen saturation Oxygen saturation in Arterial blood by Pulse oximetry Heart rate Systolic blood pressure Diastolic blood pressure Provider Name and Address Organization Details Last Updated DateTime 5 157.48 cm 24.6 kg/m2 46578.5 3 g 98.6 [degF] 98 % 98 % 94 /min 122 mm[Hg] 80 mm[Hg] Edda Sprague RN [facility] [employer] [facility] 5 10:29:01 Social History Question Answer Notes LastModified by [employer] ion Details LastModified Time Tobacco Smoking Status Current Every Day Smoker Not Available [facility] 08/06/2022 22:43:46 Do You Have An Advance Directive? No [id number] Information not available 08/06/2022 What Is Your Level Of Alcohol Consumption? None MIGRATION.82309 63240 Information not available 08/06/2022 If You Are , What Was Your Level Of Alcohol Consumption Prior To ? None MIGRATION.45387 35439 Information not available 08/06/2022 Do You Wear A Helmet When Biking? No MIGRATION.98422 77921 Information not available 08/06/2022 What Is Your Level Of Caffeine Consumption? None MIGRATION.03243 31934 Information not available 08/06/2022 In The 14 Days Before Symptom Onset, Have You Had Close Contact With A Laboratory-confi rmed COVID-19 While That Case Was Ill? No MIGRATION.79009 13370 Information not available 08/06/2022 In The 14 Days Before Symptom Onset, Have You Had Close Contact With A Person Who Is Under Investigation For COVID-19 While That Person Was Ill? No MIGRATION.02547 18043 Information not available 08/06/2022 What Type Of Diet Are You Following? REGULAR MIGRATION.67692 82917 Information not available 08/06/2022 What Is The Highest Grade Or Level Of School You Have Completed Or The Highest Degree You Have Received? 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 No MIGRATION.11351 83074 Information not available 08/06/2022 Are There Any Guns Present In Your Home? No MIGRATION.24504 88827 Information not available 08/06/2022 Do You Use Insect Repellent Routinely? No MIGRATION.62435 82334 Information not available 08/06/2022 Where Do You Live? [facility] MIGRATION.39879 41077 Information not available 08/06/2022 Do You Have A Medical Power Of Corporate Travel Counselor? No MIGRATION.44697 29530 Information not available 08/06/2022 What Was The Date Of Your Most Recent Tobacco Screening? 05/13/2021 MIGRATION.54324 40269 Information not available 08/06/2022 Do You Have Any Pets? Yes MIGRATION.19941 31753 Information not available 08/06/2022 What Is Your Relationship Status? MIGRATION.29086 28145 Information not available 08/06/2022 Do You Use Your Seat Belt Or Car Seat Routinely? Yes MIGRATION.29455 59748 Information not available 08/06/2022 Do You Have Smoke And Carbon Monoxide Detectors In Your Home? Yes MIGRATION.38372 61345 Information not available 08/06/2022 Are You Passively Exposed To Smoke? No MIGRATION.70081 29344 Information not available 08/06/2022 Are There Any Smokers In Your House? No MIGRATION.39956 11911 Information not available 08/06/2022 How Much Tobacco Do You Smoke? 2 PPW MIGRATION.66146 14508 Information not available 08/06/2022 Do You Participate In Social Media? No MIGRATION.02494 47534 Information not available 08/06/2022 Do You Feel Stressed (tense, Restless, Nervous, Or Anxious, Or Unable To Sleep At Night)? [id number] MIGRATION.14663 33266 Information not available 08/06/2022 Do You Use Any Illicit Or Recreational Drugs? No MIGRATION.75820 08634 Information not available 08/06/2022 Do You Use Sunscreen Routinely? Yes MIGRATION.04118 89196 Information not available 08/06/2022 Has Tobacco Cessation Counseling Been Provided? Yes MIGRATION.88946 04434 Information not available 08/06/2022 On What Date Was Tobacco Cessation Counseling Provided? 05/13/2021 MIGRATION.25698 60543 Information not available 08/06/2022 Have You Recently Traveled Abroad? No MIGRATION.80159 82636 Information not available 08/06/2022 Do You Have Any Dietary Restrictions? No Lay Off Sugar MIGRATION.19708 90932 Information not available 08/06/2022 Do You Or Have You Ever Used Any Other Forms Of Tobacco Or Nicotine? No MIGRATION.82211 24626 Information not available 08/06/2022 Sex: Female Functional Status Question Answer Note LastModified by Organizat ion Details LastModified Time What is your exercise level? Occasional [id number] Information not available 08/06/2022 Mental Status None recorded. Family History Relationship Description Onset Age of this Age Resolved Age Notes LastModified by Organization Details LastModified Time Father Dementia [email or web address] Not available 09/05/2024 10:18:47 Father Hypertensive disorder [id number] Not available 08/06/2022 22:43:59 Mother Osteoporosis Not avail able 09/05/2024 10:18:48 Mother Arthritis [email or web address] Not availabl e 09/05/2024 10:18:48 Medical History Condition Response BLINDNESS N RHEUMATIC FEVER N KIDNEY STONES N BLADDER PROBLEMS N MRSA N OTHER # 1 N POLIO N LUNG DISEASE/DISORDER N RADIATION / CHEMOTHERAPY N COPD N Other # 2 N BLOOD DISEASES N SURGERY N EAR OR HEARING PROBLEMS N MUMPS N FEMALE PROBLEMS / INFECTIONS Y DEPRESSION (INCLUDING POST ) N BOWEL PROBLEMS N STROKE/TIA N ULCERS N BENIGN PROSTATIC HYPERPLASIA N MEASLES N CERVICALGIA N TB SKIN TEST N MYOCARDIAL INFARCTION N PARAPELGIA N OBESITY N GERD/NAUSEA N ANEURYSM N URINARY/BLADDER/KIDNEY PROBLEMS N CORONARY ARTERY DISEASE (CAD) N MENIERE'S DISEASE N ADDICTION CONCERNS N ENDOMETRIOSIS N USE OF BLOOD THINNERS N SKIN PROBLEMS Y EMPHYSEMA N GASTROINTESTINAL DISORDER N MUSCLE,JOINT OR BONE PROBLEMS N GASTROINTESTINAL BLEEDING N BLOOD CLOTS N ASTHMA N CATARACTS N ERECTILE DYSFUNCTION N GI PROBLEMS N CHF N Low Testosterone N NEUROPATHY N INFERTILITY N AIDS/HIV N FRACTURES N CHEMOTHERAPY / RADIATION N VISION/EYE PROBLEMS N LIVER DISEASE N MALE HYPOGONADISM N HYPERTENSION N TOURETTE'S N ANXIETY DISORDER Y BLOOD TRANSFUSION N ANEMIA/BLOOD DISORDER N CHRONIC EAR INFECTIONS N BRONCHITIS N TUBERCULOSIS N GLAUCOMA N FOOT PROBLEM N DIVERTICULITIS N SLEEP APNEA N CHICKENPOX N ALLERGIES/HAYFEVER N INFECTIOUS DISEASE N PROSTATE N HEART ARRHYTHMIA N INSOMNIA N HIGH CHOLESTEROL / HYPERLIPIDEMIA N EYE PROBLEMS N HYPERTHYROIDISM Y EATING DISORDER N EDEMA N CHRONIC PAIN SYNDROME N CAROTID BLOCKAGE N CONSTIPATION N BACK / NECK PROBLEMS N HAVE YOU BEEN HOSPITALIZED OR SEEN IN [facility] IN THE PAST YEAR ? N ATHEROSCLEROSIS N BREAST PROBLEMS N DIALYSIS N ECZEMA N FIBROMYALGIA N OSTEOPOROSIS N ARTHRITIS N NO SIGNIFICANT PAST MEDICAL HISTORY N APPENDICITIS N DIABETES, TYPE N BAD TEETH N HEARTBURN / REFLUX N ADD/ADHD N AUTISM SPECTRUM DISORDER (ASD) N HEPATITIS / LIVER DISEASE N PULMONARY DISEASE N GOUT N SLEEP DISORDER N ALZHEIMER'S DISEASE N PAIN N DEMENTIA N HERPES N SEIZURES/EPILEPSY N HEADACHES/MIGRAINES N VASCULAR DISEASE N PACEMAKER N DIZZINESS N HEART DISEASE/HEART PROBLEMS N KIDNEY DISEASE N SCARLET FEVER N MULTIPLE SCLEROSIS N DEVELOPMENTAL OR BEHAVIORAL DISORDERS N MENTAL DISORDER/ILLNESS N CANCER: SPECIFY N CARDIAC ARRHYTHMIA N PNEUMONIA N ATRIAL FIBRILLATION N Gall Stones N PULMONARY EMBOLISM N AUTOIMMUNE DISEASE N Gynecological History Statement/Question Response Menses Monthly N Current Control Method Tubal Ligat ion Obstetrics History GPAL:G 0 P 0 0 0 0 Past Encounters Encounter ID Performer Location Encounter Start Date Encounter Closed Date Diagnosis/Indication Diagnosis SNOMED-CT Code Diagnosis ICD10 Code Diagnosis Note [id number] [address] [address] 10/02/2020 00:00:00 10/02/2020 11:13:[id number] [address] 10/03/2020 00:00:00 10/03/2020 09:49:40 [id number] [facility] [address] [place] [address] 10/16/2020 00:00:00 10/16/2020 11:34:18 [id number] [facility] [place] [address] [place] [address] 11/07/2020 00:00:00 11/07/2020 11:00:45 [id number] [facility] [place] [address] [place] [address] 11/13/2020 00:00:00 11/13/2020 09:29:16 [id number] [facility] [place] [address] [place] [address] 11/26/2020 00:00:00 11/26/2020 10:06:15 [id number] [facility] [place] [address] [place] [address] 12/11/2020 00:00:00 12/11/2020 09:52:16 [id number] [facility] [address] [place] [address] 02/19/2021 00:00:00 02/19/2021 14:00:43 [id number] [facility] [place] [address] [place] [address] 02/26/2021 00:00:00 02/26/2021 10:29:33 [id number] [facility] [place] [address] [place] [address] 03/11/2021 00:00:00 03/11/2021 14:03:49 [id number] [facility] [address] [place] [address] 04/22/2021 00:00:00 04/22/2021 12:07:40 [id number] [facility] [place] [address] [place] [address] 04/30/2021 00:00:00 04/30/2021 09:50:59 [id number] _ATHENA_M IGRATION_ DEFAULT_1 _1 , 05/13/2021 00:00:00 05/14/2021 11:14:28 [id number] [facility] [address] [place] [address] 06/03/2021 00:00:00 06/03/2021 16:26:02 [id number] [facility] [place] [address] [place] [address] 07/31/2021 00:00:00 07/31/2021 09:50:48 [id number] [facility] [place] [address] [place] [address] 09/24/2021 00:00:00 09/24/2021 11:02:56 [id number] [facility] [place] [address] [place] [address] 10/02/2021 00:00:00 10/02/2021 09:39:02 [id number] [facility] [place] [address] [place] [address] 10/30/2021 00:00:00 10/30/2021 09:28:24 [id number] [facility] [place] [address] [place] [address] 12/30/2021 00:00:00 12/30/2021 09:23:41 [id number] [facility] [place] [address] [place] [address] 02/26/2022 00:00:00 02/26/2022 09:23:09 [id number] [facility] [place] [address] [place] [address] 05/26/2022 00:00:00 05/26/2022 09:19:13 [id number] Tiburcio Hong MD [facility] [place] [address] [place] [address] 08/25/2022 08:58:27 08/25/2022 09:23:20 Anxiety disorder 002042037 F41.9 Chronic insomnia 2874325 04 F51.04 Smoker 78347983 F17.200 Loss of hair 368541593 L 65.9 Seasonal a llergic rhinitis 112461592 J30.2 [id number] Tiburcio Hong MD [address] [address] 10/28/2022 09:01:19 10/28/2022 09:45:41 Anxiety disorder 313102661 F41.9 Chronic insomnia 8172140 04 F51.04 Seasonal a llergic rhinitis 505844382 J30.2 Smoker 33529463 F17.200 Loss of hair 215034413 L 65.9 Adult heal th examination 092051606 Z00.00 [id number] Tiburcio Hong MD [address] [address] 12/16/2022 08:35:03 12/16/2022 09:08:15 [id number] Tiburcio Hong MD [address] [address] 12/30/2022 09:44:29 12/30/2022 10:20:12 Anxiety disorder 925062554 F41.9 Chronic insomnia 7898511 04 F51.04 Seasonal a llergic rhinitis 146303463 J30.2 Smoker 79584927 F17.200 Loss of hair 236185044 L 65.9 Microscopic hematuria 19 8853398 R31.29 Pain of bi lateral hands 1368265824 2011226 M79.977 [id number] Tiburcio Hong MD [address] [address] 02/23/2023 08:31:51 02/23/2023 10:32:15 [id number] Tiburcio Hong MD [address] [address] 03/02/2023 08:54:40 03/02/2023 09:18:47 Microscopic hematuria 785729974 R31.29 resolved Anxiety disorder 06 F41.9 Chronic insomnia 9115628 04 F51.04 Seasonal a llergic rhinitis 710823769 J30.2 Loss of hair 122102388 L 65.9 Smoker 72102572 F17.200 Pain of bi lateral hands 8247111192 5200593 M79.958 [id number] Tiburcio Hong MD [address] [address] 05/05/2023 09:08:11 05/05/2023 09:40:30 Microscopic hematuria 811254969 R31.29 resolved Anxiety disorder 06 F41.9 Chronic insomnia 6507560 04 F51.04 Seasonal a llergic rhinitis 540593627 J30.2 Loss of hair 273984566 L 65.9 Pain of bi lateral hands 9598163284 3481499 M79.642 Smoker 14882284 F17.930 [id number] Tiburcio Hong MD [place] [address] 1 08/11/2023 14:34:09 08/11/2023 15:22:40 Anxiety disorder 350836975 F41.9 Microscopic hematuria 19 0456723 R31.29 resolved Chronic insomnia 4101614 04 F51.04 Seasonal a llergic rhinitis 060724838 J30.2 Loss of hair 445215512 L 65.9 Pain of bi lateral hands 5750145694 1753418 M79.642 Smoker 92517094 F17.103 [id number] Tiburcio Hong MD [address] [address] 10/14/2023 08:44:48 10/14/2023 09:27:52 Anxiety disorder 450287862 F41.9 Microscopic hematuria 19 4350616 R31.29 resolved Chronic insomnia 6823023 04 F51.04 Seasonal a llergic rhinitis 648426460 J30.2 Loss of hair 604505116 L 65.9 Pain of bi lateral hands 4577424100 2153172 M79.642 Smoker 35324787 F17.200 Adult heal th examination 290940163 Z00.00 Neuropathy 744511636 G62 .9 Diabetes m ellitus screening 577113411 Z13.1 [id number] Tiburcio Hong MD [place] [address] 1 11/18/2023 08:40:46 11/18/2023 09:09:10 [id number] Tiburcio Hong MD [address] [address] 11/30/2023 12:30:12 11/30/2023 13:00:49 Anxiety disorder 329581699 F41.9 Microscopic hematuria 19 4660598 R31.29 resolved Chronic insomnia 3079751 04 F51.04 Seasonal a llergic rhinitis 055440324 J30.2 Loss of hair 564216423 L 65.9 Pain of bi lateral hands 4245169540 1405701 M79.642 Smoker 77790018 F17.200 Neuropathy 552112274 G62 .9 [id number] Tiburcio Hong MD [address] [address] 03/21/2024 08:49:40 03/21/2024 09:35:18 Anxiety disorder 616534255 F41.9 Microscopic hematuria 19 4016284 R31.29 resolved Chronic insomnia 5374199 04 F51.04 Seasonal a llergic rhinitis 337892193 J30.2 Loss of hair 725427541 L 65.9 Pain of bi lateral hands 9867657157 9790531 M79.642 Smoker 47790616 F17.200 Neuropathy 653005492 G62 .9 [id number] Tiburcio Hong MD [address] [address] 04/20/2024 14:08:40 04/20/2024 15:05:52 Headache 32863546 R51.9 Nasal congestion 2699653 0 R09.81 Cough 21742885 R05.9 Sinusitis 27896589 J32.9 [id number] Tiburcio Hong MD [address] [address] 09/05/2024 10:17:46 09/05/2024 10:43:00 Pain of bilateral hands 0649010332 3074308 M79.642 Bilateral wrist pain 277 1115873 7960570 M25.531 Neuropathy 812934243 G62 .9 Pain in left foot 936538 5773 87752 M79.672 Arthritis 2613691 M19.90 Loss of hair 408755412 L 65.9 Anxiety disorder 8560531 06 F41.9 Health Concerns Section Related Observation LastModified by Organization Detai ls LastModified Time None Recorded Concern Status LastModified by Organization Details LastModified Time None Recorded Advance Directives Directive N: Payers Encounter Date Sequence Insurance Name Policy Number Policy Escalera Covered Member ID Escalera Member ID Guarantor Name 11/18/2023 1 [facility] (MEDICAID HMO) [id number] Antoinett Wood [id number] Joann Wood 11/30/2023 1 [facility] (MEDICAID HMO) [id number] Antoinett Wood [id number] Joann Wood 03/21/2024 1 [facility] (MEDICAID HMO) [id number] 0003 Antoinett Wood [id number] Joann Wood 04/20/2024 1 [facility] (MEDICAID HMO) [id number] 0003 Antoinett Wood [id number] Joann Wood 09/05/2024 1 [facility] (MEDICAID HMO) [id number] 0003 Antoinett Wood [id number] Joann Wood Notes Date Note Type Note Provider Name and Address Organization Details Recorded Time 11/30/2023 text/html Pt is here for f /u on her annual labs and meds. Doing overall well. Denies any new concerns. Pt is doing well on Naproxen and Lyrica for her chronic hand and joints pain and is tolerating them well. Pt says she got bad stomach pains with Diclofenac and so she stopped taking it. Pt still has not gone for Mammo & cologuard yet.Pt's dad few months ago and she is helping her mom in [facility] and she is busy with her work too.Pt is feeling much better with her insomnia and anxiety. She is now able to sleep for 6-7 hrs. Denies any mood swings/SI/HI.Pt says she got s/e from Zoloft and so she stopped taking it after few days.Pt is f/u with Dr. Huertas for her other chronic conditions and is getting multiple testing with them.C/o anxiety for last several years and its getting more worse. Pt has seen Psych for this in the past, but for last few yrs, she is not seeing anyone for this. Pt denies any mood swings/SI/HI/flight s of ideas. Pt was on Cymbalta and Lexapro in the past for this, but they were not helping her. So she stopped taking them.Pt has h/o Rt thyroidectomy for thyroid nodules in the past (About 20 yrs ago). She is f/u with Endo for it. Tiburcio Hong MD [address], [place], [address], [employer] [facility] [employer] 11/30/2023 12:57:43 03/21/2024 text/html Pt is here for f /u on her meds and chronic conditions. Doing overall well. Denies any problem with meds. Denies any new concern. Pt is doing well on Naproxen and Lyrica for her chronic hands and joints pain and is tolerating them well. Pt says she got bad stomach pains with Diclofenac and so she stopped taking it. Pt still has not gone for Mammo & cologuard yet.Pt's dad few months ago and she is helping her mom in [facility] and she is busy with her work too.Pt is feeling much better with her insomnia and anxiety. She is now able to sleep for 6-7 hrs. Denies any mood swings/SI/HI.Pt says she got s/e from Zoloft and so she stopped taking it after few days.Pt is f/u with Endo for her other chronic conditions and is getting testing with them.Pt has h/o Rt thyroidectomy for thyroid nodules in the past (About 20 yrs ago). She is f/u with Endo for it. Tiburcio Hong MD [address], [address], [place], [address], [employer] 03/21/2024 09:33:07 04/20/2024 text/html Telephone visit.ACV. C/o congestion, frontal headache, yellowish nasal drainage, cough, fatigue for last 8-9 days. Denies any known sick contact. Pt has been doing otc meds; but still not getting better. Tiburcio Hong MD [address], [place], [address], [facility] 04/20/2024 14:57:22 09/05/2024 text/html ACV: C/o b/l hand and wrist pain, tingling & numbness for last several months. Pt had a fall about 1 yr ago and was seen in ED for this and got x-rays and it was all good as per pt. Pt has not seen anyone for this since than. C/o Lt dorsal distal foot area pain and small lump for last few weeks. Denies any fall/trauma. No ankle pain. Denies any other concern. Needs refill on her meds. Doing overall well with her mood. Denies any SI/HI. Tiburcio Hong MD [address] [facility], [address], [place], [address], [facility] 09/05/2024 10:45:55 OBGyn Episode No OBEpisode recorded.
--- OUTSIDE RECORDS SUMMARY | 2024-09-05 11:19 | XMS_ITS | Continuity of Care Document ---
Author Organization [facility] Address [address] [place] [address] Phone Care Team Providers Care Community Service Coordinator Name Role Phone Skylar Feliciano MD Unavailable Unavailable Allergies, Adverse Reactions, Alerts Substance Reaction Status Criticality codeine Nausea / Vomiting(moderate) Active No Information Medications Medication Instructions Dosage Effective Dates (start - stop) Status Comments Klonopin 2 mg tablet take 1 tablet by or al route 2 times every day in the evening 2 MG - Active Paxil 40 mg tablet TAKE 1 TABLET BY ORA L ROUTE EVERY BEDTIME 40 MG - Active Levaquin 500 mg tablet take 1 tablet by oral route every day - Active Pinnacaine 20 % ear drops Instill 5 drops into left ear every 2 hours as needed. - Active Wellbutrin XL 300 mg 24 hr tablet, extended release take 1 tablet by oral route every day 300 MG - Active Naprosyn 500 mg tablet take 1 tablet by oral route 2 times every day with food 500 MG - Active morphine 15 mg tablet take 1 tablet by o ral route every 4-6 hours as needed - Active Neurontin 300 mg capsule take 3 capsule by oral route 3 times every day 900 MG - Active Advance Directives Directive Yes / No Effective Date File Name No Information Encounters Encounter Description Practice Location Reason(s) For Visit Diagnoses Date Provider Providers Copied on Encounter [facility], [address], [place], [place], [address] , [place] tel:[phone] [facility] No Information 7-201 6 Braden Cheng. [address], [place], [place], [address], [place]. tel: [phone] [facility], [address], [place], [place], [address] , [place] tel:[phone] [facility] No Information 4-201 6 Braden Cheng. [address], [place], [place], [address], [place]. tel:[phone] [facility], [address], [place], [place], [address] , [place] tel:[phone] [facility] No Information 5-201 5 Braden Cheng. [address], [place], [place], [address], [place]. tel: [phone] [facility], [address], [place], [place], [address] , [place] tel:[phone] [facility] No Information 2-201 5 Rm Edward. [address], [place], [place], [address], [place]. tel: [phone] [facility], [address], [place], [place], [address] , [place] tel: [phone] [facility] Dysthymic disorderAcute otitis media 5 Rm Edward. [address], [place], [place], [address], [place]. tel: [phone] Referring Provider: Skylar Noguera, [address], [place], [address] . tel:[phone] [facility], [address], [place], [place], [address] , [place] tel: [phone] [facility] Bakers cystDysthymic disorderLumbar radiculopathyNEED FOR PROPHYLACTIC VACCINATION WITH COMBINED DIPHTHERIA-TETANUS- PERTUSSIS (DTP) (DTAP) VACCINE 8- 5 Rm Edward. [address], [place], [place], [address], [place]. tel:[phone] Referring Provider: Skylar Noguera, [address], [place], [address] . tel:[phone] [facility], [address], [place], [place], [address] , tel: [phone] [facility] No Information 8 4 Cizek Skylar. [address], [place], [place], [address], [place]. tel: [phone] [facility], [address], [place], [place], [address] , tel: [phone] [facility] Bakers cystDysthymic disorder 0 4 Sorayazek Skylar. [address], [place], [place], [address], . tel:[phone] Referring Provider: Skylar Noguera, [address], [place], [address] . tel:[phone] [facility], [address], [place], [place], [address] , tel: [phone] [facility] Dysthymic disorderLumbar radiculopathy 9 4 Sorayazek Skylar. [address], [place], [place], [address], [place]. tel:[phone] Referring Provider: Skylar Noguera, [address], [place], [address] . tel:[phone] [facility], [address], [place], [place], [address] , tel: [phone] [facility] Dysthymic disorderLumbago 4-201 4 Sorayazek Skylar. [address], [place], [place], [address], . tel:[phone] Referring Provider: Skylar Noguera, [address], [place], [address] . tel:[phone] [facility], [address], [place], [place], [address] , tel: [phone] [facility] Dysthymic disorderLumbagoArm paresthesia, left Apr-0 4 Braden Cheng. [address], [place], [place], [address], . tel:[phone] Referring Provider: Skylar Noguera, [address], [place], [address] . tel:[phone] [facility], [address], [place], [place], [address] , tel: [phone] [facility] Dysthymic disorderLumbago May- 7- 3 Rm Edward. [address], [place], [place], [address], . tel:[phone] Referring Provider: Skylar Noguera, [address], [place], [address] . tel:[phone] [facility], [address], [place], [place], [address] , tel: [phone] [facility] Anxiety and depressionURI, acuteLumbago May-0 2-201 3 Rm Edward. [address], [place], [place], [address], [place]. tel:[phone] Referring Provider: Skylar Noguera, [address], [place], [address] . tel:[phone] [facility], [address], [place], [place], [address] , tel: [phone] [facility] Anxiety and depressionChronic lower back pain Nov-0 3 Braden Cheng. [address], [place], [place], [address], [place]. tel:[phone] Referring Provider: Skylar Noguera, [address], [place], [address] . tel:[phone] [facility], [address], [place], [place], [address] , tel: [phone] [facility] Lumbago Mika-0 9-201 3 Hesterberg Cheyanne. [address], [place], [place], [address], [place]. tel: [phone] [facility], [address], [place], [place], [address] , [place] tel: [phone] [facility] HematuriaAdrenal cystLumbago Mika-0 3-201 3 Hesterberg Cheyanne. [address], [place], [place], [address], [place]. tel: [phone] Referring Provider: Skylar Noguera, [address], [place], [address] . tel:[phone] [facility], [address], [place], [place], [address] , [place] tel: [phone] [facility] SHERIF ADRENALLUMBAGOABNOR MAL WEIGHT GAIN Mar-0 6-201 0 Cizek Skylar. [address], [place], [place], [address], [place]. tel: [phone] [facility], [address], [place], [place], [address] , [place] tel: [phone] [facility] BACKACHE NOS Aug-0 9-201 0 Conversion Doctor. [address], [place], [address], [place]. [facility], [address], [place], [place], [address] , [place] tel: [phone] [facility] DEPRESSIVE DISORDER NECBENIGN NEOPLASM ADRENAL Aug-0 9-201 0 Cizek Skylar. [address], [place], [place], [address], [place]. tel: [phone] [facility], [address], [place], [place], [address] , [place] tel: [phone] [facility] ACUTE URI NOSDYSMENORRHEA Sep-1 7-200 9 Cizek Skylar. [address], [place], [place], [address], [place]. tel: [phone] [facility], [address], [place], [place], [address] , [place] tel: [phone] [facility] AC SEROUS OTITIS MEDIA Sep-1 7-200 9 Laura West. [address], [place], [place], [address], [place]. tel: [phone] [facility], [address], [place], [place], [address] , tel: [phone] [facility] OVARIAN CYST NEC/NOS Mar-2 0-200 7 Conversion Doctor. [address] [facility], [place], [address], [place]. [facility], [address], [place], [place], [address] , tel: [phone] [facility] ABDMNAL PAIN RT LWR QUAD Aug- 9-200 7 Laura West. [address], [place], [place], [address], [place]. tel:[phone] [facility], [address] [facility], [place], [address] , [place] tel: [phone] [facility] ABDMNAL PAIN GENERALIZEDHYPOTHYR OIDISM NOS Mar-1 6-200 7 Cizek Skylar. [address], [place], [place], [address], [place]. tel:[phone] [facility], [address], [place], [address] , [place] tel: [phone] [facility] ACNE NECMALAISE AND FATIGUE NEC Nov-1 3-200 6 Cizek Skylar. [address], [place], [place], [address], [place]. tel:[phone] [facility], [address], [place], [place], [address] , [place] tel: [phone] [facility] EXCESSIVE MENSTRUATION May-0 3-200 5 Cizek Skylar. [address], [place], [place], [address], [place]. tel:[phone] [facility], [address], [place], [place], [address] , tel: [phone] [facility] ANXIETY STATE NOS Oct-0 3-200 2 Cizek Skylar. [address], [place], [place], [address], [place]. [phone] [facility], [address], [place], [address] , [place] tel: [phone] [facility] IRRITABLE BOWEL SYNDROME 3-200 0 Braden Torreshleen. [address], [place], [place], [address], [place]. tel:[phone] Family History Family Member Type Diagnosis Age At Onset No Information Immunizations Vaccine Date Status Comments Tdap administered Source: [facility] unization Record Payers Payer name Insurance type Covered libertarian ID Authoriza tisheila(s) [facility] CI [id number] [facility] CI [id number] Social History Type Description Quantity Date Captured Comments Alcohol Use Details Unknown Caffeine Use Details Unknown Tobacco Use Status Smoking Status No Information Sex Female Chief Complaint And Reason For Visit No Information Reason For Referral Reason For Referral No Information History Of Present Illness Encounter Date Complaint History Of Prese nt Illness No Information Functional Status Date Functional Assessmen t No Information Instructions Date Instruction Additional Infor mation No Information Assessments Type Assessment Date No Information Patient Care Teams Name Effective Dates (start - stop) Status Members No Information
== END 2024-09-05 10:02 | disposition home or self-care (01) ==
LOC: ANHIMG 10:08
PROVIDERS: PCP Family Medicine; Visit Provider Family Medicine
DX: M79.642 Pain in left hand (principal); M25.531 Pain in right wrist; M79.672 Pain in left foot
CPT/HCPCS: 73110; 73130; 73630

== ENCOUNTER 2024-10-12 07:39 | Outpatient (CLI) | payer OTHER, SELFPAY ==
--- NOTE | ~2024-10-12 | MM_ITS ---
EXAMINATION: MM screening [facility] BI w dianne HISTORY: Screening TECHNIQUE: Craniocaudal and mediolateral oblique 3-D tomosynthesis images were obtained and synthetic 2-D images were generated. CAD analysis was submitted and interpreted. COMPARISON: No prior mammogram is available for comparison at this institution. BREAST PARENCHYMAL COMPOSITION: Dense: The breasts are heterogeneously dense, which may obscure small masses FINDINGS: There is no evidence of suspicious mass, calcification, or architectural distortion to sugg est malignancy in either breast. There has been no suspicious interval change. IMPRESSION: 1. No mammographic evidence of malignancy. 2. Recommend routine screening mammography in one year. BI-RADS Category 1: Negative Reviewed, dictated and finalized at location A.
--- OUTSIDE RECORDS SUMMARY | 2024-10-12 07:44 | XMS_ITS | Clinical Summary ---
Author Organization [facility] Address [address] [place] [address] Phone Care Team Providers Care Public Health Technician Name Role Phone Provider, Unknown Primary Care Provider Unavaila ble Social History Tobacco Use Types Packs/Day Years Used Date Smoking Tobacco: Never Assessed Comments Unknown Sex and Gender Information Value Date Recorded Sex Assigned at Not on file Legal Sex Female 4:22 PM CDT Gender Identity Not on file Sexual Orientation Not on file Plan of Treatment Not on file Care Teams Public Health Technician Relationship Specialty Start Date End Date Provider, Unknown UNKNOWN PCP - General 10/27/16
--- OUTSIDE RECORDS SUMMARY | 2024-10-12 07:44 | XMS_ITS | Encounter Summary ---
Author Organization [facility] Address 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
--- OUTSIDE RECORDS SUMMARY | 2024-10-12 07:44 | XMS_ITS | Encounter Summary ---
Author Organization [facility] Address 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
--- OUTSIDE RECORDS SUMMARY | 2024-10-12 07:44 | XMS_ITS | Data Portability ---
Author Organization [place] - [facility] [employer], Main Office Address [address] [place] [id number] Care Team Providers Care Music Mixer Name Role Phone MARISOL OLGUIN Primary Care Provider MARISOL OLGUIN Referring Provider [phone] TIBURCIO HONG Primary Care Provider Assessment Encounter Date Assessment [...] for it. Patches started. 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 Cont f/u with Endo [...] before next visit. Annual labs in 10/30. [email or web address] Not available 11/30/2023 12:57:16 03/21/2024 03/21/2024 53 [...] for it. Patches started. 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 Cont f/u with Endo [...] before next visit. Annual labs in 10/30. [email or web address] Not available 03/21/2024 09:32:15 04/20/2024 04/20/2024 The [...] via phone call to discuss the following: Not available 04/20/2024 14:31:50 Plan of Treatment Reminders Order Date Submit Date Provider Last Modified By Organization Details Last Modified Time Details Appointments Physical/ Annual Wellness 2024 08:00A M Tiburcio Hong MD Not available Not available Not available Lab None recorded. Referral podiatris t referral - Please call patient to schedule an appointme nt. Thank you. 2024 025 YENY Del Castillo DPM, [address] [facility], [facility], [place], [address], 09/27/2024 12:39:31 Procedures None recorded. Surgeries None recorded. Imaging XR, hand, 3 or more view [email or web address], [address] [facility] [address] [facility], [place], [address], 09/05/2024 12:33:26 XR, foot, 3 or more view [address], [address] [address], [place], [address], 09/21/2024 16:03:45 XR, wrist, 3 or more view [address], [address] [address], [place], [address], 09/12/2024 15:13:40 Medication Orders spironola ctone 50 mg tablet 2024 [facility] #76737, [address], [id number], 09/05/2024 10:44:37 buspirone 10 mg tablet 2024 [facility] #21101, [address], [id number], 09/05/2024 10:44:53 pregabali n 75 mg capsule 2024 [facility] #03961, [address], [id number], 09/05/2024 10:38:21 Medrol (Dre) 4 mg tablets in a dose pack 2023 [facility] #78032, [address], [id number], 04/20/2024 14:55:22 amoxicill in 875 mg-potass ium clavulana te 125 mg tablet [id number] [facility] #01045, [address], [id number], 09/05/2024 10:40:05 spironola ctone 50 mg tablet 2023 [facility] #56449, [address], [place], [place], [id number], 03/21/2024 09:10:00 naproxen 500 mg tablet 2023 [facility] #38600, [address], [place], [place], [id number], 03/21/2024 09:09:51 buspirone 10 mg tablet 2023 [facility] #31687, [address], [place], [place], [id number], 03/21/2024 09:10:00 fluticaso ne propionat e 50 mcg/actua tion nasal spray,[facility] 2023 [facility] #16912, [address], [place], [place], [id number], 03/21/2024 09:09:50 cetirizin e 10 mg tablet 2023 [email or web address] [facility] #96719, [address], [place], [place], [id number], 09/27/2024 09:04:30 pregabali n 50 mg capsule 2023 [email or web address] [facility] #39669, [address], [place], [place], [id number], 09/05/2024 10:44:03 spironola ctone 50 mg tablet 2023 [facility] #38058, [address], [place], [place], [id number], 11/30/2023 12:50:20 naproxen 500 mg tablet 2023 [facility] #58784, [address] [place] [address], [id number], 11/30/2023 12:50:22 buspirone 10 mg tablet 2023 [facility] #63765, [address] [facility], [place], [place], [id number], 11/30/2023 12:50:24 fluticaso ne propionat e 50 mcg/actua tion nasal spray,[facility] 2023 [facility] #53961, [address] [place] [address], [id number], 11/30/2023 12:50:22 cetirizin e 10 mg tablet 2023 [email or web address] [facility] #02235, [address] [place] [address], [id number], 09/27/2024 09:04:30 pregabali n 50 mg capsule 2023 [email or web address] [facility] #12240, [address] [place] [address], [id number], 09/05/2024 10:44:03 Patient TargetsNo targets recorded. Patient Instructions Encounter Date Encounter Id Patient Instructions Last Modified By Organization Details Last Modified Time 04/20/2024 [id number] Due to the COVID-19 (Novel Coronavirus) pandemic, it is within this context (and with the understanding that this method of patient encounter is in the patient s best interest as well as the health and safety of other patients and the public) that [facility] is being provided for this patient encounter rather than a heuo-hs-dwqc visit. This patient encounter is appropriate at [...] if listed, were provided by the patient. 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 Thank you. Referring Physician: Marisol Olguin, Family Medicine, Encounter Date: 09/27/2024 Results Created Date Observation Date Name Description Value Unit Range Abnormal Flag Note LastModifiedBy Organization Detail LastModifiedTime 11/18/19 24 11/18/2023 CBC/C OMPLE TE BLD COUNT W/DIF F white blood cells 8.1 x10'3 /uL 4.2-10 .8 Not Available [facility] (Lab) [address] [place], [address], 11/18/2023 13:52:20 11/18/19 24 11/18/2023 CBC/C OMPLE TE BLD COUNT W/DIF F red blood cells 4.76 x10'6 /uL 3.80-5 .20 Not Available [facility] (Lab) [address] [place], [address], 11/18/2023 13:52:20 11/18/19 24 11/18/2023 CBC/C OMPLE TE BLD COUNT W/DIF F hemoglobin 13.8 g/dL 12.0-1 5.6 Not Available [facility] (Lab) [address] [place], [address], 11/18/2023 13:52:20 11/18/19 24 11/18/2023 CBC/C OMPLE TE BLD COUNT W/DIF F hematocrit 42.3 % 35.7-4 5.7 Not Available [facility] (Lab) [address] [place], [address], 11/18/2023 13:52:20 11/18/19 24 11/18/2023 CBC/C OMPLE TE BLD COUNT W/DIF F mean red cell volume 88.9 fL 82.0-9 9.0 Not Available [facility] (Lab) [address] [place], [address], 11/18/2023 13:52:20 11/18/19 24 11/18/2023 CBC/C OMPLE TE BLD COUNT W/DIF F mean red cell hemoglobin 29.0 pg 27.0-3 3.0 Not Available [facility] (Lab) [address] [place], [address], 11/18/2023 13:52:20 11/18/19 24 11/18/2023 CBC/C OMPLE TE BLD COUNT W/DIF F mean RBC HGB concentratio n 32.6 g/dL 31.0-3 6.0 Not Available [facility] (Lab) [address] [place], [address], 11/18/2023 13:52:20 11/18/19 24 11/18/2023 CBC/C OMPLE TE BLD COUNT W/DIF F red cell distribution width 14.1 % 11.8-1 5.5 Not Available [facility] (Lab) [address] [place], [address], 11/18/2023 13:52:20 11/18/19 24 11/18/2023 CBC/C OMPLE TE BLD COUNT W/DIF F platelets 344 x10'3 /uL 150-40 0 Not Available [facility] (Lab) [address] [place], [address], 11/18/2023 13:52:20 11/18/19 24 11/18/2023 CBC/C OMPLE TE BLD COUNT W/DIF F mean platelet volume 10.1 fL 9.0-12 .4 Not Available [facility] (Lab) [address] [place], [address], 11/18/2023 13:52:20 11/18/19 24 11/18/2023 CBC/C OMPLE TE BLD COUNT W/DIF F neutrophils 60.0 % 39.0-7 2.0 Not Available [facility] (Lab) [address] [place], [address], 11/18/2023 13:52:20 11/18/19 24 11/18/2023 CBC/C OMPLE TE BLD COUNT W/DIF F lymphocytes 30.8 % 16.0-4 7.0 Not Available [facility] (Lab) [address] [place], [address], 11/18/2023 13:52:20 11/18/19 24 11/18/2023 CBC/C OMPLE TE BLD COUNT W/DIF F monocytes 6.3 % 5.0-12 .0 Not Available [facility] (Lab) [address] [place], [address], 11/18/2023 13:52:20 11/18/19 24 11/18/2023 CBC/C OMPLE TE BLD COUNT W/DIF F eosinophils 2.0 % 1.0-7. 0 Not Available [facility] (Lab) [address] [place], [address], 11/18/2023 13:52:20 11/18/19 24 11/18/2023 CBC/C OMPLE TE BLD COUNT W/DIF F basophils 0.5 % 0.0-2. 0 Not Available [facility] (Lab) [address] [place], [address], 11/18/2023 13:52:20 11/18/19 24 11/18/2023 CBC/C OMPLE TE BLD COUNT W/DIF F immature granulocytes 0.4 % 0.00-0 .50 Not Available [facility] (Lab) [address] [place], [address], 11/18/2023 13:52:20 11/18/19 24 11/18/2023 CBC/C OMPLE TE BLD COUNT W/DIF F neutrophils, absolute count 4.88 x10'3 /uL 1.5-8. 0 Not Available [facility] (Lab) [address] [place], [address], 11/18/2023 13:52:20 11/18/19 24 11/18/2023 CBC/C OMPLE TE BLD COUNT W/DIF F lymphocytes, absolute count 2.50 x10'3 /uL 1.07-3 .43 Not Available [facility] (Lab) [address] [place], [address], 11/18/2023 13:52:20 11/18/19 24 11/18/2023 CBC/C OMPLE TE BLD COUNT W/DIF F monocytes, absolute count 0.51 x10'3 /uL 0.29-0 .99 Not Available [facility] (Lab) [address] [place], [address], 11/18/2023 13:52:20 11/18/19 24 11/18/2023 CBC/C OMPLE TE BLD COUNT W/DIF F eosinophils, absolute count 0.16 x10'3 /uL 0.02-0 .53 Not Available [facility] (Lab) [address] [place], [address], 11/18/2023 13:52:20 11/18/19 24 11/18/2023 CBC/C OMPLE TE BLD COUNT W/DIF F basophils, absolute count 0.04 x10'3 /uL 0.01-0 .08 Not Available [facility] (Lab) [address] [place], [address], 11/18/2023 13:52:20 11/18/19 24 11/18/2023 CBC/C OMPLE TE BLD COUNT W/DIF F immature granulocytes ,absolute 0.03 x10'3 /uL 0.00-0 .05 Not Available [facility] (Lab) [address] [place], [address], 11/18/2023 13:52:20 11/18/19 24 11/18/2023 CBC/C OMPLE TE BLD COUNT W/DIF F nucleated red blood cells 0.0 % -0 Not Available [facility] (Lab) [address] [place], [address], 11/18/2023 13:52:20 11/18/19 24 11/18/2023 CBC/C OMPLE TE BLD COUNT W/DIF F NRBC# 0.00 x10'3 /uL Not Available [facility] (Lab) [address] [place], [address], 11/18/2023 13:52:20 11/18/19 24 11/18/2023 URINA LYSIS COMPL ETE/I RIS W/RFX color YELLOW Not Available [facility] (Lab) [address] [place], [address], 11/18/2023 14:07:40 11/18/19 24 11/18/2023 URINA LYSIS COMPL ETE/I RIS W/RFX appear TURBID abnormal Not Available [facility] (Lab) [address] [place], [address], 11/18/2023 14:07:40 11/18/19 24 11/18/2023 URINA LYSIS COMPL ETE/I RIS W/RFX specific gravity 1.014 1.001- 1.030 Not Available [facility] (Lab) [address] [place], [address], 11/18/2023 14:07:40 06/12/11/18/2023 URINA LYSIS COMPL ETE/I RIS W/RFX pH 7.0 pH_un its 5.0-9. 0 Not Available [facility] (Lab) [address] [place], [address], 11/18/2023 14:07:40 11/18/19 24 11/18/2023 URINA LYSIS COMPL ETE/I RIS W/RFX leukocytes NEGATI VE yue/u L negati ve- Not Available [facility] (Lab) [address] [place], [address], 11/18/2023 14:07:40 11/18/19 24 11/18/2023 URINA LYSIS COMPL ETE/I RIS W/RFX nitrite NEGATI VE negati ve- Not Available [facility] (Lab) [address] [place], [address], 11/18/2023 14:07:40 11/18/19 24 11/18/2023 URINA LYSIS COMPL ETE/I RIS W/RFX protein NEGATI VE mg/dL negati ve- Not Available [facility] (Lab) [address] [place], [address], 11/18/2023 14:07:40 11/18/19 24 11/18/2023 URINA LYSIS COMPL ETE/I RIS W/RFX glucose NORMAL mg/dL normal - Not Available [facility] (Lab) [address] [place], [address], 11/18/2023 14:07:40 11/18/19 24 11/18/2023 URINA LYSIS COMPL ETE/I RIS W/RFX ketones NEGATI VE mg/dL negati ve- Not Available [facility] (Lab) [address] [place], [address], 11/18/2023 14:07:40 11/18/19 24 11/18/2023 URINA LYSIS COMPL ETE/I RIS W/RFX urobilinogen NORMAL mg/dL normal - Not Available [facility] (Lab) [address] [place], [address], 11/18/2023 14:07:40 11/18/19 24 11/18/2023 URINA LYSIS COMPL ETE/I RIS W/RFX bilirubin NEGATI VE mg/dL negati ve- Not Available [facility] (Lab) [address] [place], [address], 11/18/2023 14:07:40 11/18/19 24 11/18/2023 URINA LYSIS COMPL ETE/I RIS W/RFX blood NEGATI VE mg/dL negati ve- Not Available [facility] (Lab) [address] [place], [address], 11/18/2023 14:07:40 11/18/19 24 11/18/2023 URINA LYSIS COMPL ETE/I RIS W/RFX white blood cells 0-8 /i??h pfi?? 0-8 Not Available [facility] (Lab) [address] [place], [address], 11/18/2023 14:07:40 11/18/19 24 11/18/2023 URINA LYSIS COMPL ETE/I RIS W/RFX red blood cells 0-4 /i??h pfi?? 0-4 Not Available [facility] (Lab) [address] [place], [address], 11/18/2023 14:07:40 11/18/19 24 11/18/2023 URINA LYSIS COMPL ETE/I RIS W/RFX bacteria NONE Not Available [facility] (Lab) [address] [place], [address], 11/18/2023 14:07:40 11/18/19 24 11/18/2023 URINA LYSIS COMPL ETE/I RIS W/RFX mucous OCCASI ONAL /i??l pfi?? abnormal Not Available [facility] (Lab) [address] [place], [address], 11/18/2023 14:07:40 11/18/19 24 11/18/2023 URINA LYSIS COMPL ETE/I RIS W/RFX squamous epithelial PACKED FIELD /i??l pfi?? abnormal Not Available [facility] (Lab) [address] [place], [address], 11/18/2023 14:07:40 11/18/19 24 11/18/2023 LIPID PANEL cholesterol 155 mg/dL 140-19 9 [facility] JOHN NSUS RECOM MENDA TION FOR RITA STERO L: ADULT CHILD LOW RISK: <200 <170 BORDE RLINE : <200- 239 ----- HIGH RISK: >240 >200 Not Available [facility] (Lab) [address] [place], [address], 11/18/2023 14:21:58 11/18/19 24 11/18/2023 LIPID PANEL triglyceride s 64 mg/dL 0-150 [facility] JOHN NSUS REPOR T RECOM MENDA TION FOR TRIGL YCERI TIMO: ADULT CHILD LOW RISK: <150 ----- BODER LINE: 150-1 99 ----- HIGH RISK: >200 ----- Not Available [facility] (Lab) [address] [place], [address], 11/18/2023 14:21:58 11/18/19 24 11/18/2023 LIPID PANEL HDL cholesterol 76 mg/dL 40- Not Available [facility] (Lab) [address] [place], [address], 11/18/2023 14:21:58 11/18/19 24 11/18/2023 LIPID PANEL [...] WILL NOT BE REPOR JUNE. Not Available [facility] (Lab) [address] [place], [address], 11/18/2023 14:21:58 11/18/19 24 11/18/2023 COMPR EHENS LUDIN METAB OLIC PANEL sodium 139 mmol/ L 137-14 5 Not Available [facility] (Lab) [address] [place], [address], 11/18/2023 14:22:08 11/18/19 24 11/18/2023 COMPR EHENS LUDIN METAB OLIC PANEL potassium 4.5 mmol/ L 3.5-5. 1 Not Available [facility] (Lab) [address] [place], [address], 11/18/2023 14:22:08 11/18/19 24 11/18/2023 COMPR EHENS LUDIN METAB OLIC PANEL chloride 109 mmol/ L 98-107 high Not Available [facility] (Lab) [address] [place], [address], 11/18/2023 14:22:08 11/18/19 24 11/18/2023 COMPR EHENS LUDIN METAB OLIC PANEL carbon dioxide 26 mmol/ L 22-30 Not Available [facility] (Lab) [address] [place], [address], 11/18/2023 14:22:08 11/18/19 24 11/18/2023 COMPR EHENS LUDIN METAB OLIC PANEL anion gap 8.5 mmol/ L 14-22 low Not Available [facility] (Lab) [address] [place], [address], 11/18/2023 14:22:08 11/18/19 24 11/18/2023 COMPR EHENS LUDIN METAB OLIC PANEL glucose 98 mg/dL 70-99 Not Available [facility] (Lab) [address] [place], [address], 11/18/2023 14:22:08 11/18/19 24 11/18/2023 COMPR EHENS LUDIN METAB OLIC PANEL BUN 13 mg/dL 8-19 Not Available [facility] (Lab) [address] [place], [address], 11/18/2023 14:22:08 11/18/19 24 11/18/2023 COMPR EHENS LUDIN METAB OLIC PANEL creatinine 0.65 mg/dL 0.66-1 .25 low Not Available [facility] (Lab) [address] [place], [address], 11/18/2023 14:22:08 11/18/19 24 11/18/2023 COMPR EHENS LUDIN METAB OLIC PANEL GFR >60 Refer ence Range : [place] ge GFR Healt hy Adult : >60 [...] or ethni c subgr oups, such as Hispa nics. Outsi de the valid ated donnie [...] calcu lator is avail able on the [facility] websi te: https ://diamond vides.shukri chandra.o rg/pr ofess ional s/kdo qi/gf r_cal culat or Not Available [facility] (Lab) [address] [place], [address], 11/18/2023 14:22:08 11/18/19 24 11/18/2023 COMPR EHENS LUDIN METAB OLIC PANEL alkaline phosphatase 70 U/L 38-126 Not Available [facility] (Lab) [address] [place], [address], 11/18/2023 14:22:08 11/18/19 24 11/18/2023 COMPR EHENS LUDIN METAB OLIC PANEL alanine aminotransfe rase 18 U/L 0-35 Not Available [facility] (Lab) [address] [place], [address], 11/18/2023 14:22:08 11/18/19 24 11/18/2023 COMPR EHENS LUDIN METAB OLIC PANEL aspartate aminotransfe rase 24 U/L 15-37 Not Available [facility] (Lab) [address] [place], [address], 11/18/2023 14:22:08 11/18/19 24 11/18/2023 COMPR EHENS LUDIN METAB OLIC PANEL bilirubin, total 0.70 mg/dL 0.20-1 .30 Not Available [facility] (Lab) [address] [place], [address], 11/18/2023 14:22:08 11/18/19 24 11/18/2023 COMPR EHENS LUDIN METAB OLIC PANEL calcium 8.8 mg/dL 8.4-10 .2 Not Available [facility] (Lab) [address] [place], [address], 11/18/2023 14:22:08 11/18/19 24 11/18/2023 COMPR EHENS LUDIN METAB OLIC PANEL total protein 6.7 g/dL 6.3-8. 2 Not Available [facility] (Lab) [address] [place], [address], 11/18/2023 14:22:08 11/18/19 24 11/18/2023 COMPR EHENS LUDIN METAB OLIC PANEL albumin 4.2 g/dL 3.4-5. 0 Not Available [facility] (Lab) [address] [place], [address], 11/18/2023 14:22:08 11/18/19 24 11/18/2023 COMPR EHENS LUDIN METAB OLIC PANEL globulin 2.5 g/dL 2.6-4. 2 low Not Available [facility] (Lab) [address] [place], [address], 11/18/2023 14:22:08 11/18/19 24 11/18/2023 COMPR EHENS LUDIN METAB OLIC PANEL A/G ratio 1.7 ratio 1.0-2. 0 Not Available [facility] (Lab) [address] [place], [address], 11/18/2023 14:22:08 11/18/19 24 11/18/2023 URIC ACID SERUM uric acid 3.8 mg/dL 2.5-6. 2 Not Available [facility] (Lab) [address] [place], [address], 11/18/2023 14:22:13 11/18/19 24 11/18/2023 VITAM IN B12 (ROBERT GERHARD ) vb12 320 pg/mL 239-93 1 Not Available [facility] (Lab) [address] [place], [address], 11/18/2023 16:06:43 11/18/19 24 11/18/2023 FOLAT E, SERUM /PLAS MA folate 8.42 NG/mL 2.76-2 0.0 Not Available [facility] (Lab) [address] [place], [address], 11/18/2023 16:06:48 11/18/19 24 11/18/2023 VITAM IN D 25-HY DROXY vd25oh 35.4 NG/mL 30-100 Vitam in D Statu s: Defic ient: <20 ng/mL Insuf ficie nt: 20-29 ng/mL Suffi cient : 30-10 0 ng/mL Not Available [facility] (Lab) [address] [place], [address], 11/18/2023 14:36:22 11/18/19 24 11/18/2023 RHEUM ATOID FACTO R rf <8.6 IU/mL 0.0-11 .9 Not Available [facility] (Lab) [address] [place], [address], 11/18/2023 15:36:44 11/18/19 24 11/18/2023 HEMOG LOBIN A1C HA1C 5.6 % 4.0-6. 0 Diabe omar Scree reagan Crite luke: <5.7% Consi stent with absen ce of diabe omar 5.7-6 .4% Consi stent with incre ased risk for diabe omar (pred iabet es) >OR=6 .5% Consi stent with diabe omar REFER ENCE: Diabe omar Care 2016, 39(James ppl.1 ):s13 -s22 Not Available [facility] (Lab) [address] [place], [address], 11/18/2023 15:45:35 11/18/19 24 11/18/2023 TSH W/REF TAL FT4 TSH with reflex free T4 0.213 uIU/m L 0.465- 4.680 low Not Available [facility] (Lab) [address] [place], [address], 11/18/2023 16:06:03 11/18/19 24 11/18/2023 T4 FREE free T4 0.99 NG/dL 0.78-2 .19 Not Available [facility] (Lab) [address] [place], [address], 11/18/2023 17:54:29 11/18/19 24 11/20/2023 МАРИНА SCREE N RFX TITER /MATTHIEU REINA antinuclear antibodies, ifa NEGATI VE Negat ludin <1:80 Borde rline 1:80 Posit ludin >1:80 ICAP nommariah lorenzo re: AC-0 For more infor matgary n about Hep-2 cell patte rns use ANApa ttern s.org , the offic ial websi te for the Inter natio nal Conse nsus on Antin uclea r Antib lesa (МАРИНА) Patte rns (ICA ). Perfo rmed at: [address], [place] [address] Lab Direc tor: Benjamin jose PhD, Phone : [phone] Not Available [facility] (Lab) [address] [place], [address], 11/20/2023 12:12:07 11/12/19 24 11/12/2023 CT, cervi alfonso spine , w/o contr ast No observ ation record ed. [email or web address] [facility] [address] [place], [address], 11/30/2023 12:48:18 11/12/19 24 11/12/2023 CT, head + neck, w/o contr ast No observ ation record ed. [email or web address] [facility] [address] [place], [address], 11/12/2023 14:21:54 09/06/19 25 09/05/2024 XR, hand, 3 or more view No observ ation record ed. [email or web address] [address], [place], [address], 09/05/2024 12:33:56 Result Notes None recorded. Problems Name Problem SNOMED Code Status Onset Date Resolution Date Notes Provider Name and Address Organization Details Recorded Time Impacted cerumen of bilateral ears 0940191458605 108 Active 2021 Not Available [facility] 3 22:45:57 Anxiety disorder 539919148 Active 2020 Not Available [facility] 3 22:45:57 Foot callus 472479582 Active 2021 Not Available [facility] 3 22:45:57 Thyroid nodule 303570730 Active 2021 Not Available [facility] 3 22:45:57 Loss of hair 641446421 Active 2021 Not Available [facility] 3 22:45:57 Hyperthyro idism 42176712 Active 2020 Not Available [facility] 3 22:45:57 Seasonal allergic rhinitis 246481755 Active 2021 Not Available [facility] 3 22:45:58 Porokerato sis 993468313 Active 2020 Not Available [facility] 3 22:45:58 History of thyroidect leighann 398724990 Active 2020 Not Available [facility] 3 22:45:58 Chronic insomnia 219415562 Active 2020 Not Available [facility] 3 22:45:58 Smoker 55100624 Active 2020 Not Available [facility] 3 22:45:58 Microscopi c hematuria 119486194 Active 2022 Tiburcio Hong MD [address], [place] [address], [place], [address] , [facility] 3 09:58:25 Pain of bilateral hands 1111088598773 9109 Active 2022 Tiburcio Hong MD [address], [facility] [address], [place], [address] , [facility] 3 10:03:39 Sinusitis 18872699 Active 2023 Tiburcio Hong MD [address], [place], [address] , [place] [facility] 4 09:35:17 Neuropathy 972418281 Active 2023 Tiburcio Hong MD [address], [place], [address] , [place] [facility] 4 09:09:20 Headache 98773448 Active 2023 Tiburcio Hong MD [address], [place], [address] , [place] [facility] 4 14:32:07 Nasal congestion 53992672 Active 2023 Tiburcio Hong MD [address], [place], [address] , [place] [facility] 4 14:32:12 Cough 02552453 Active 2023 Tiburcio Hong MD [address], [place], [address] , [place] [facility] 4 14:32:16 Bilateral wrist pain 3725592148487 9105 Active 2024 Tiburcio Hong MD [address], [place], [address] , [place] [facility] 5 10:32:40 Pain in right foot 5051344059930 07 Active 2024 Tiburcio Hong MD [address], [place], [address] , [place] [facility] 5 10:33:23 Pain in left foot 6096223516231 07 Active 2024 Tiburcio Hong MD [address], [place], [address] , [place] [facility] 5 10:34:30 Arthritis 4348684 Active 2024 Tiburcio Hong MD [address], [place], [address] , [place] [facility] 5 10:43:50 Arthritis of joint of toe 287144322 Active 2024 JYOTI Guerrero [address], [place], [address] , [place] [facility] 5 09:17:35 Bilateral carpal tunnel syndrome 4627668190822 9101 Active 2024 JYOTI Guerrero [address], [place], [address] , [employer] [facility] 5 09:18:56 Problem Notes None recorded. Procedures Surgical History Date Name Laterality Status Provider Name and Address Organization Details Recorded Time 4 Smoking Cessation completed MD Jessica [address], [place], [address], [facility] [employer] [facility] 03/21/2024 09:09:56 4 Smoking Cessation completed MD Jessica [address], [place], [address], [place] [facility] 10/14/2023 09:01:20 4 Smoking Cessation completed MD Jessica [address], [place], [address], [place] [facility] 08/11/2023 14:55:29 3 Smoking Cessation completed MD Jessica [address], [place], [address], [facility] 05/05/2023 09:11:39 3 Smoking Cessation completed MD Jessica [address], [place], [address], [facility] [employer] [facility] 03/02/2023 09:16:52 3 Smoking Cessation completed MD Jessica [address], [place], [address], [facility] [employer] [facility] 10/28/2022 09:02:04 3 Smoking Cessation completed Tiburcio Hong MD [address] [facility], [facility] [address], [place], [address], [employer] 08/25/2022 09:21:03 Thyroid Surgery completed Not Available [facility] 08/06/2022 22:43:56 Tubal Ligation completed Not Available [facility] 08/06/2022 22:43:56 Imaging Results Imaging Date Name Status LastModified by Organiz ation Details LastModified Time 11/12/2023 CT, cervical spine, w/o contrast completed [address] [place], [address], 11/30/2023 12:48:18 11/12/2023 CT, head + neck, w/o contrast completed [address] [place] [address] [address] [place], [address], 11/12/2023 14:21:54 09/05/2024 XR, hand, 3 or more view completed [address] [place] [address], [address], 09/05/2024 12:33:56 Procedure Notes None recorded. Medical Equipment None Reported. Allergies Allergen ID Allergen Name Allergen Category Reaction Reaction Severity Criticality Documentation Date Start Date Code Code System Note Provider Name and Address Organization Details Recorded Time 77998 codeine medicatio n Not available Not available Not available 08/06/2022 2670 RxNorm Not Available [facility] 22:48:29 28956 diclofena c Not available abdominal pain severe Not available 10/14/2023 3355 RxNorm Tiburcio Hong MD [address] [facility], [facility] [address], [place], [address], [employer] 09:21:11 Medications Name Sig Start Date Stop [...] 1 TABLET BY MOUTH EVERY DAY DIRECTED 09/27 completed Not Available Not Available Not Available fluconazol e 150 mg tablet TAKE [...] Not Available Not Available No t Available progestero ne micronized 100 mg capsule TAKE [...] Available Not Available pregabalin 75 mg capsule TAKE 1 CAPSULE BY MOUTH TWICE DAILY DIRECTED active Not Available Not Available No t Available ramelteon 8 mg tablet TAKE 1 TABLET [...] Updated DateTime 4 157.48 cm 24 kg/m2 29633.9 5 g 97.9 [degF] 76 /min 98 % 98 % 100 mm[Hg] 66 mm[Hg] Aidan [employer] 4 12:36:52 Date Recorded Body height Body mass index (BMI) Body weight Body temperature Heart rate Respiratory rate Oxygen saturation Oxygen saturation in Arterial blood by Pulse oximetry Systolic blood pressure Diastolic blood pressure Provider Name and Address Organization Details Last Updated DateTime 4 157.48 cm 24 kg/m2 36773.3 g 99.1 [degF] 90 /min 16 /min 98 % 98 % 104 mm[Hg] 70 mm[Hg] Aidan [employer] [facility] [employer] 4 09:03:27 Date Recorded Body height Body mass index (BMI) Body weight Body temperature Oxygen saturation Oxygen saturation in Arterial blood by Pulse oximetry Heart rate Systolic blood pressure Diastolic blood pressure Provider Name and Address Organization Details Last Updated DateTime 5 157.48 cm 24.6 kg/m2 44995.5 3 g 98.6 [degF] 98 % 98 % 94 /min 122 mm[Hg] 80 mm[Hg] Edda Sprague RN [facility] [employer] 5 10:29:01 Date Recorded Body height Body mass index (BMI) Body weight Body temperature Heart rate Respiratory rate Oxygen saturation Oxygen saturation in Arterial blood by Pulse oximetry Pain severity - 0-10 verbal numeric rating [Score] - Reported Systolic blood pressure Diastolic blood pressure Provider Name and Address Organization Details Last Updated DateTime 5 157.48 cm 24.8 kg/m2 77214.4 2 g 97.4 [degF] 83 /min 20 /min 99 % 99 % 1 106 mm[Hg] 80 mm[Hg] Mirtha Pastrana RN [place] [facility] 5 09:08:55 Social History Question Answer Notes LastModified by Organizat ion Details LastModified Time Tobacco Smoking Status Current Every Day Smoker Not Available [employer] 08/06/2022 22:43:46 Do You Have An Advance Directive? No MIGRATION.76216 43871 Information not available 08/06/2022 What Is Your Level Of Alcohol Consumption? None MIGRATION.63519 31204 Information not available 08/06/2022 If You Are , What Was Your Level Of Alcohol Consumption Prior To ? None MIGRATION.98648 40706 Information not available 08/06/2022 Do You Wear A Helmet When Biking? No MIGRATION.16729 93308 Information not available 08/06/2022 What Is Your Level Of Caffeine Consumption? None MIGRATION.92304 58449 Information not available 08/06/2022 In The 14 Days Before Symptom Onset, Have You Had Close Contact With A Laboratory-confi rmed COVID-19 While That Case Was Ill? No MIGRATION.06179 73437 Information not available 08/06/2022 In The 14 Days Before Symptom Onset, Have You Had Close Contact With A Person Who Is Under Investigation For COVID-19 While That Person Was Ill? No MIGRATION.33763 18015 Information not available 08/06/2022 What Type Of Diet Are You Following? REGULAR MIGRATION.18169 27762 Information not available 08/06/2022 What Is The Highest Grade Or Level Of School You Have Completed Or The Highest Degree You Have Received? 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 No MIGRATION.83921 33432 Information not available 08/06/2022 Are There Any Guns Present In Your Home? No MIGRATION.25153 19109 Information not available 08/06/2022 Do You Use Insect Repellent Routinely? No MIGRATION.67129 51154 Information not available 08/06/2022 [facility] MIGRATION.80070 12431 Information not available 08/06/2022 Do You Have A Medical Power Of Cma? No MIGRATION.29354 43160 Information not available 08/06/2022 What Was The Date Of Your Most Recent Tobacco Screening? 05/13/2021 MIGRATION.49265 74680 Information not available 08/06/2022 Do You Have Any Pets? Yes MIGRATION.75648 16050 Information not available 08/06/2022 What Is Your Relationship Status? MIGRATION.00516 14223 Information not available 08/06/2022 Do You Use Your Seat Belt Or Car Seat Routinely? Yes MIGRATION.79459 87801 Information not available 08/06/2022 Do You Have Smoke And Carbon Monoxide Detectors In Your Home? Yes MIGRATION.97002 48301 Information not available 08/06/2022 Are You Passively Exposed To Smoke? No MIGRATION.55930 68409 Information not available 08/06/2022 Are There Any Smokers In Your House? No MIGRATION.45699 31415 Information not available 08/06/2022 How Much Tobacco Do You Smoke? 2 PPW MIGRATION.13193 80453 Information not available 08/06/2022 Do You Participate In Social [employer]? No MIGRATION.89521 93620 Information not available 08/06/2022 Do You Feel Stressed (tense, Restless, Nervous, Or Anxious, Or Unable To Sleep At Night)? DI03033-8 MIGRATION.51111 54265 Information not available 08/06/2022 Do You Use Any Illicit Or Recreational Drugs? No MIGRATION.53511 98928 Information not available 08/06/2022 Do You Use Sunscreen Routinely? Yes MIGRATION.40688 11950 Information not available 08/06/2022 Has Tobacco Cessation Counseling Been Provided? Yes MIGRATION.13688 89085 Information not available 08/06/2022 On What Date Was Tobacco Cessation Counseling Provided? 05/13/2021 MIGRATION.64964 71790 Information not available 08/06/2022 Have You Recently Traveled Abroad? No MIGRATION.50448 22412 Information not available 08/06/2022 Do You Have Any Dietary Restrictions? No Lay Off Sugar MIGRATION.06558 35773 Information not available 08/06/2022 Do You Or Have You Ever Used Any Other Forms Of Tobacco Or Nicotine? No MIGRATION.47295 62783 Information not available 08/06/2022 Sex: Female Functional Status Question Answer Note LastModified by Organizat ion Details LastModified Time What is your exercise level? Occasional MIGRATION.[id number] 26 Information not available 08/06/2022 Mental Status None recorded. Family History Relationship Description Onset Age of this Age Resolved Age Notes LastModified by Organization Details LastModified Time Father Dementia [email or web address] Not available 09/05/2024 10:18:47 Father Hypertensive disorder MIGRATION.369 [id number] Not available 08/06/2022 22:43:59 Mother Osteoporosis [email or web address] Not avail able 09/05/2024 10:18:48 Mother Arthritis Not availabl e 09/05/2024 10:18:48 Medical History Condition Response BLINDNESS N RHEUMATIC FEVER N KIDNEY STONES N BLADDER PROBLEMS N MRSA N OTHER # 1 N POLIO N LUNG DISEASE/DISORDER N RADIATION / CHEMOTHERAPY N COPD N Other # 2 N BLOOD DISEASES N SURGERY N EAR OR HEARING PROBLEMS N MUMPS N FEMALE PROBLEMS / INFECTIONS Y BOWEL PROBLEMS N DEPRESSION (INCLUDING POST ) N STROKE/TIA N ULCERS N BENIGN PROSTATIC [...] N EDEMA N CHRONIC PAIN SYNDROME N CONSTIPATION N CAROTID BLOCKAGE N BACK / NECK PROBLEMS N HAVE YOU BEEN HOSPITALIZED OR SEEN IN [facility] IN THE PAST YEAR ? N ATHEROSCLEROSIS [...] Gynecological History Statement/Question Response Menses Monthly N Date of Last Pap Smear Current Control Method Tubal Ligat ion Date of Last Colonoscopy Most Recent Mammogram Most Recent Bone Density Obstetrics History GPAL:G 0 P 0 0 0 0 Past Encounters Encounter ID Performer Location Encounter Start Date Encounter Closed Date Diagnosis/Indication Diagnosis SNOMED-CT Code Diagnosis ICD10 Code Diagnosis Note [id number] Tiburcio Hong MD [facility] [address] [address] 10/02/2020 00:00:00 10/02/2020 11:13:19 [id number] Tiburcio Hong MD [address] [address] 10/03/2020 00:00:00 10/03/2020 09:49:40 [id number] Tiburcio Hong MD [address] [address] 10/16/2020 00:00:00 10/16/2020 11:34:18 [id number] Tiburcio Hong MD [address] [address] 11/07/2020 00:00:00 11/07/2020 11:00:45 [id number] Tiburcio Hong MD [address] [address] 11/13/2020 00:00:00 11/13/2020 09:29:16 [id number] Tiburcio Hong MD [address] [address] 11/26/2020 00:00:00 11/26/2020 10:06:15 [id number] [facility] [address] [place] [address] 12/11/2020 00:00:00 12/11/2020 09:52:16 [id number] MD YARED Penaloza[facility] [place] [address] [place] [address] 02/19/2021 00:00:00 02/19/2021 14:00:43 [id number] MD YARED Mckinnon[facility] [place] [address] [place], [place] [address] [place] [address] 02/26/2021 00:00:00 02/26/2021 10:29:33 [id number] MD YARED [facility]ckinnon[facility] [place] [address] [place], [place] [address] [address] 03/11/2021 00:00:00 03/11/2021 14:03:49 [id number] MD BARB [facility] [place] [address] [place] [address] 04/22/2021 00:00:00 04/22/2021 12:07:40 [id number] Tiburcio Hong MD [facility] [address] [address] 04/30/2021 00:00:00 04/30/2021 09:50:59 [id number] Petar Del Castillo DPM _YENY_[facility] IGRATION_ DEFAULT_1 _1 , 05/13/2021 00:00:00 05/14/2021 11:14:28 [id number] HAROON Larsen S[facility] Primary [facility] [address] [facility] [address] [place] [address] 06/03/2021 00:00:00 06/03/2021 16:26:02 [id number] Tiburcio Hong MD [facility] [address] [address] 07/31/2021 00:00:00 07/31/2021 09:50:48 [id number] Tiburcio Hong MD [facility] [place] [address] [place] [address] 09/24/2021 00:00:00 09/24/2021 11:02:56 [id number] Tiburcio Hong MD [facility] [place] [address] [place] [address] 10/02/2021 00:00:00 10/02/2021 09:39:02 [id number] Tiburcio Hong MD [facility] [address] [place] [address] 10/30/2021 00:00:00 10/30/2021 09:28:24 [id number] Tiburcio Hong MD [facility] [place] [address] [place] [address] 12/30/2021 00:00:00 12/30/2021 09:23:41 [id number] Tiburcio Hong MD [facility] [place] [address] [place] [address] 02/26/2022 00:00:00 02/26/2022 09:23:09 [id number] Tiburcio Hong MD [facility] [address] [place] [address] 05/26/2022 00:00:00 05/26/2022 09:19:13 [id number] Tiburcio Hong MD [facility] [address] [place] [address] 08/25/2022 08:58:27 08/25/2022 09:23:20 Anxiety disorder 857339807 F41.9 Chronic insomnia 4422836 04 F51.04 Smoker 35175214 F17.200 Loss of hair 266903055 L 65.9 Seasonal a llergic rhinitis 273067869 J30.2 [id number] Tiburcio Hong MD [facility] [place] [address] [place] [address] 10/28/2022 09:01:19 10/28/2022 09:45:41 Anxiety disorder 079498090 F41.9 Chronic insomnia 0248125 04 F51.04 Seasonal a llergic rhinitis 386583673 J30.2 Smoker 79098918 F17.200 Loss of hair 493315119 L 65.9 Adult heal th examination 349933909 Z00.00 [id number] Tiburcio Hong MD [address] [address] 12/16/2022 08:35:03 12/16/2022 09:08:15 [id number] Tiburcio Hong MD [address] [address] 12/30/2022 09:44:29 12/30/2022 10:20:12 Anxiety disorder 575584625 F41.9 Chronic insomnia 7204712 04 F51.04 Seasonal a llergic rhinitis 109047858 J30.2 Smoker 75305767 F17.200 Loss of hair 235598289 L 65.9 Microscopic hematuria 19 5968133 R31.29 Pain of bi lateral hands 4682086167 5111681 M79.514 [id number] Tiburcio Hong MD [address] [address] 02/23/2023 08:31:51 02/23/2023 10:32:15 [id number] Tiburcio Hong MD [address] [address] 03/02/2023 08:54:40 03/02/2023 09:18:47 Microscopic hematuria 056976368 R31.29 resolved Anxiety disorder 06 F41.9 Chronic insomnia 4325886 04 F51.04 Seasonal a llergic rhinitis 693383822 J30.2 Loss of hair 039399221 L 65.9 Smoker 14606735 F17.200 Pain of bi lateral hands 0149364386 1674039 M79.440 [id number] Tiburcio Hong MD [address] [address] 05/05/2023 09:08:11 05/05/2023 09:40:30 Microscopic hematuria 810187564 R31.29 resolved Anxiety disorder 06 F41.9 Chronic insomnia 8064087 04 F51.04 Seasonal a llergic rhinitis 839119792 J30.2 Loss of hair 999239432 L 65.9 Pain of bi lateral hands 1032362202 4811263 M79.642 Smoker 00470107 F17.188 [id number] Tiburcio Hong MD [address] [address] 08/11/2023 14:34:09 08/11/2023 15:22:40 Anxiety disorder 288621220 F41.9 Microscopic hematuria 19 5896055 R31.29 resolved Chronic insomnia 3400477 04 F51.04 Seasonal a llergic rhinitis 332475882 J30.2 Loss of hair 851491447 L 65.9 Pain of bi lateral hands 3072824233 3751918 M79.642 Smoker 56982317 F17.145 [id number] Tiburcio Hong MD [address] [address] 10/14/2023 08:44:48 10/14/2023 09:27:52 Anxiety disorder 174653450 F41.9 Microscopic hematuria 19 4919700 R31.29 resolved Chronic insomnia 1692508 04 F51.04 Seasonal a llergic rhinitis 864169095 J30.2 Loss of hair 523602671 L 65.9 Pain of bi lateral hands 0896527615 3955635 M79.642 Smoker 05911069 F17.200 Adult heal th examination 256668120 Z00.00 Neuropathy 717396799 G62 .9 Diabetes m ellitus screening 341009287 Z13.1 [id number] Tiburcio Hong MD [address] [address] 11/18/2023 08:40:46 11/18/2023 09:09:10 [id number] Tiburcio Hong MD [address] [address] 11/30/2023 12:30:12 11/30/2023 13:00:49 Anxiety disorder F41.9 Microscopic hematuria 19 9020697 R31.29 resolved Chronic insomnia 3137907 04 F51.04 Seasonal a llergic rhinitis 028610316 J30.2 Loss of hair 162060745 L 65.9 Pain of bi lateral hands 7843425916 7164714 M79.642 Smoker 10637433 F17.200 Neuropathy 503438554 G62 .9 [id number] Tiburcio Hong MD [address] [address] 03/21/2024 08:49:40 03/21/2024 09:35:18 Anxiety disorder 419652765 F41.9 Microscopic hematuria 19 0408155 R31.29 resolved Chronic insomnia 6202031 04 F51.04 Seasonal a llergic rhinitis 016313545 J30.2 Loss of hair 970150531 L 65.9 Pain of bi lateral hands 5096390019 5573030 M79.642 Smoker 51223876 F17.200 Neuropathy 340986392 G62 .9 [id number] Tiburcio Hong MD [address] [address] 04/20/2024 14:08:40 04/20/2024 15:05:52 Headache 27739690 R51.9 Nasal congestion 7484923 0 R09.81 Cough 48831968 R05.9 Sinusitis 97254754 J32.9 [id number] Tiburcio Hong MD [address] [address] 09/05/2024 10:17:46 09/05/2024 10:43:00 Pain of bilateral hands 8187632500 5555432 M79.642 Bilateral wrist pain 579 3752905 9825900 M25.531 Neuropathy 546761815 G62 .9 Pain in left foot 609667 8027 04934 M79.672 Arthritis 3395234 M19.90 Loss of hair 984657562 L 65.9 Anxiety disorder F41.9 [id number] JYOTI Guerrero [facility] [address] [place] [address] 09/27/2024 08:50:45 09/27/2024 09:27:19 Arthritis of joint of toe 313465828 M13.879 pain with exerciseMi ld soft tissue swelling Bilateral carpal tunnel syndrome 3320924979 6370739 G56.03 Recommende d hand surgeon referral, pt declinesMa naging well with pregabalin Health Concerns Section Related Observation LastModified by Organization Detai ls LastModified Time None Recorded Concern Status LastModified by Organization Details LastModified Time None Recorded Advance Directives Directive N: Payers Encounter Date Sequence Insurance Name Policy Number Policy Escalera Covered Member ID Escalera Member ID Guarantor Name 11/30/2023 1 [facility] (MEDICAID HMO) [id number] Antoinett Wood [id number] Joann Wood 03/21/2024 1 [facility] (MEDICAID HMO) [id number] Antoinett Wood [id number] Joann Wood 04/20/2024 1 [facility] (MEDICAID HMO) [id number] Antoinett Wood [id number] Joann Wood 09/05/2024 1 [facility] (MEDICAID HMO) [id number] Antoinett Wood [id number] Joann Wood 09/27/2024 1 [facility] (MEDICAID HMO) [id number] 0003 Antoinett Wood [id number] Joann Wood Notes Date Note Type Note [...] and she is helping her mom in [facility] and she is busy with her work [...] Endo for it. Tiburcio Hong MD [address] [place], [place], [address], [employer] 11/30/2023 12:57:43 03/21/2024 text/html Pt is here [...] and she is helping her mom in [facility] and she is busy with her work [...] for it. Tiburcio Hong MD [address], [place], [address], [employer] [place] 03/21/2024 09:33:07 04/20/2024 text/html Telephone visit.ACV. C/o congestion, frontal headache, yellowish nasal drainage, cough, fatigue for last 8-9 days. Denies any known sick contact. Pt has been doing otc meds; but still not getting better. Tiburcio Hong MD [address], [place], [address], [employer] [place] 04/20/2024 14:57:22 09/05/2024 text/html ACV: C/o b/l [...] Denies any SI/HI. Tiburcio Hong MD [address], [place], [address], [employer] [place] 09/05/2024 10:45:55 09/27/2024 text/html Joann Huertas is a 54 year old female patient here today to follow up on imaging C/o b/l hand and wrist pain, tingling & numbness for last several months. Notes stabbing pains in ALLYSSA hands.XRs completed on 09/05/24 were benignShe does see that pregabalin is working well C/o Lt dorsal distal foot area pain and small lump for last few weeks. Denies any fall/trauma. No ankle pain.XR results moderate degenerative changes. JYOTI uGerrero [address], [place], [address], [employer] 09/27/2024 09:29:37 OBGyn Episode No OBEpisode recorded.
--- OUTSIDE RECORDS SUMMARY | 2024-10-12 07:44 | XMS_ITS | Clinical Summary ---
Author Organization [facility] Address [address] [place] [address] Dr. Pierce: Epic Prelude ADT ADAM AVERY [address] Care Team Providers Care Supervisor Litharge Name Role Phone Skylar Feliciano MD Primary Care Provider [phone] Social History Tobacco Use Types Packs/Day Years Used Date Smoking Tobacco: Never Assessed Comments Unknown Sex and Gender Information Value Date Recorded Sex Assigned at Not on file Legal Sex Female 3:16 AM [employer] Gender Identity Not on file Sexual Orientation Not on file Plan of Treatment Health Maintenance Due Date Last Done Comments DTAP/TDAP/TD VACCINES (1 - Tdap) 1989 HEPATITIS B VACCINES (1 of 3 - 19+ 3-dose series) 06/09 HPV/Cotest (21-29) 1991 CERVICAL CANCER SCREENING 2000 HPV/Cotest (30-65) 2000 PAP SMEAR 2000 BREAST CANCER SCREENING 2010 COLORECTAL SCREENING 2015 Colorectal Cancer Screening 2015 FIT-DNA Q 3 years 2015 FIT/FOBT Q 1 year 2015 Flex Sig/CT Colonography Q 5 years 2015 ZOSTER VACCINE (1 of 2) 2020 INFLUENZA VACCINE (#1) 2024 Care Teams Supervisor Litharge Relationship Specialty Start Date End Date Skylar Feliciano MD PCP - General 05/25/15
--- OUTSIDE RECORDS SUMMARY | 2024-10-12 07:45 | XMS_ITS | Encounter Summary ---
Author Organization [facility] Address [address] [place] [address] Care Team Providers Care Converting Supervisor Name Role Phone Skylar Feliciano MD Primary Care Provider [phone] Encounter Details Date Type Department Care Team (Latest Contact Info) Description 05/11/2000 Outpatient Historical [facility] Brett Aguilar MD [address] [facility]. 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
== END 2024-10-12 07:40 | disposition home or self-care (01) ==
LOC: ANHIMG 07:42
PROVIDERS: PCP Family Medicine; Visit Provider Nurse Practitioner
DX: Z12.31 Encounter for screening mammogram for malignant neoplasm of breast (principal)
CPT/HCPCS: 77063; 77067